=== PATIENT | male | born 1945 | race Caucasian/White ===

== ENCOUNTER 2017-03-26 09:52 | Day surgery (SDC) | payer MEDICARE ==
[2017-03-22 08:43] VITALS: BMI 31.0
[~2017-03-26 09:52] MED LIST: LACTATED RINGERS 1,000 ML IV SCH; LIDOCAINE 1% 20 ML VIAL (10MG/ML) FOR IV START INTRADERMA PRN
[2017-03-26 10:12] VITALS: RESP 16; TEMP 97.2
[2017-03-26] MEDS ORDERED: PROPOFOL 10 MG/ML 20 ML VIAL IV ONE (10:58)
--- NOTE | 2017-03-26 11:28 | P.PCN ---
Date of Procedure: 03/26/17 Preoperative Diagnosis: Postoperative Diagnosis: Procedure(s) Performed: Procedure: Total colonoscopy. Preoperative diagnosis: Screening for neoplasia, patient has history of polyps. Postoperative diagnosis: Diverticulosis with no evidence of acute diverticulitis , strictures, polyps or cancer. Preparation: HalfLytely prep. Sedation: Was provided by anesthesia. Brief clinical history: The patient is a 71-year-old male who is scheduled for this evaluation for screening for neoplasia because of history of polyps. His last exam was around 7 years ago the patient had polyps removed on his first exam prior to that. This would be his first colonoscopy. He has no abdominal complaints, bleeding or anemia. Procedure: With the patient on his left lateral decubitus position and after informed consent and adequate sedation, the perianal area was inspected and it did not show any fissures or fistulas. There were no masses felt on digital rectal examination. The Olympus CFQ 160L video colonoscope was then inserted in the rectum in the usual fashion and advanced to the cecum. There was diffuse diverticulosis with no evidence of acute diverticulitis or strictures. The mucosa appeared healthy. No polyps or tumors were seen. I retroflexed the endoscope in the rectum before the endoscope was withdrawn. The patient tolerated the procedure well. Plan: The patient was reassured. Discussed dietary measures. He will follow up with you as planned and I recommended repeat exam in 5 years. Implants: Indications for Procedure: Operative Findings: Description of Procedure:
[2017-03-26 11:48] VITALS: BP 136/70; PULSE 49
== END 2017-03-26 12:00 | disposition home or self-care (01) ==
LOC: ORWHC2ENDO 09:52
DX: Z12.11 Encounter for screening for malignant neoplasm of colon (principal); K57.30 Diverticulosis of large intestine without perforation or abscess without bleeding; Z86.010 Personal history of colon polyps; K21.9 Gastro-esophageal reflux disease without esophagitis; I10 Essential (primary) hypertension; Z79.899 Other long term (current) drug therapy
CPT/HCPCS: J2704; G0105

== ENCOUNTER → 2019-09-11 | Outpatient (CLI) | payer MEDICARE ==
--- NOTE | 2019-09-11 08:58 | MR ---
EXAMINATION TYPE: MR shoulder RT wo con DATE OF EXAM: 09/11/2019 COMPARISON: X-ray dated 09/02/2019 HISTORY: R shoulder pain TECHNIQUE: Multiplanar, multisequence imaging of the right shoulder is performed without contrast. FINDINGS: There is hypertrophic change involving the AC joint which results in impingement upon the r otator cuff. Increased signal within the AC joint suggest active edematous change within the joint sp monique and ligamentous structures. There is fluid in the subacromial subdeltoid bursa. There is a complete through thickness tear anteri or fibers of the supraspinatus tendon measuring 1.2 cm. There is severe tendinopathy involving the re maining portion of the distal margin of the supraspinatus tendon and its posterior fibers. Subscapularis tendon is intact although there is increased signal at its insertion suggestive of intr asubstance tear or tendinosis. Infraspinatus tendon demonstrates thinning and increased signal at its insertion compatible tendinosi s. Bony labrum grossly intact. There is a small amount of fluid in the joint space. Elevation of the humeral head relative glenoid i s compatible with rotator cuff tear. Cystic changes involving the humeral head likely reactive second joan to post impingement. Biceps tendon is seen within the bicipital groove. Intracapsular portion bic eps tendon and biceps anchor intact. IMPRESSION: 1. There is a 1.2 cm through thickness tear of the distal margin of the supraspinatus tendon. Remaini ng portion of the distal margin supraspinatus tendon demonstrates diffuse tendinopathy. 2. Tendinosis distal subscapularis and infraspinatus tendons with no definite through thickness tear. 3. Impingement with AC joint arthropathy. Edematous signal within the AC joint noted which may be on the basis of ligamentous strain. 4. Glenohumeral joint arthropathy.
== END | disposition home or self-care (01) ==
LOC: RADMRIMAIN 07:02
PROVIDERS: ATTEND Orthopaedic Surgery
DX: M75.111 Incomplete rotator cuff tear or rupture of right shoulder, not specified as traumatic (principal); M12.811 Other specific arthropathies, not elsewhere classified, right shoulder; R60.0 Localized edema

== ENCOUNTER → 2019-12-02 | Outpatient (CLI) | payer MEDICARE ==
[2019-12-02 07:33] LABS: Potassium 4.2 mmol/L (3.5-5.1)
[2019-12-02 07:35] LABS: Basophils % (A) 0 %; Eosinophils # (A) 0.2 k/uL (0-0.7); Eosinophils % (A) 3 %; HCT 50.6 % (39.0-53.0); Lymphocytes # (A) 1.9 k/uL (1.0-4.8); Lymphocytes % (A) 34 %; MCHC 33.6 g/dL (31.0-37.0); MCV 95.3 fL (80.0-100.0); Mean Platelet Volume 7.3; Monocytes # (A) 0.4 k/uL (0-1.0); Monocytes % (A) 7 %; Neutrophils # (A) 2.8 k/uL (1.3-7.7); Neutrophils % (A) 52 %; Platelet Count 221 k/uL (150-450); RBC 5.31 m/uL (4.30-5.90); RDW 12.4 % (11.5-15.5); WBC 5.5 k/uL (3.8-10.6)
== END | disposition home or self-care (01) ==
LOC: LABPAT 06:38
PROVIDERS: ATTEND Orthopaedic Surgery
DX: Z01.810 Encounter for preprocedural cardiovascular examination (principal); Z01.812 Encounter for preprocedural laboratory examination; M75.41 Impingement syndrome of right shoulder
CPT/HCPCS: 36415; 80051; 85025; 93005

== ENCOUNTER 2019-12-10 06:00 | Day surgery (SDC) | payer MEDICARE ==
[2019-12-09 08:13] VITALS: BMI 30.1
--- NOTE | 2019-12-09 21:46 | HP ---
HISTORY AND PHYSICAL DATE OF SURGERY: 12/10/2019 Terence Colvin is a 74-year-old patient seen with progressive right shoulder pain. We discussed treatment options. He elected to proceed with right shoulder arthroscopy. Consent regarding the procedure was obtained. PAST MEDICAL HISTORY: Hypertension. PAST SURGICAL HISTORY: Knee arthroscopy. DAILY MEDICATIONS: Hydrochlorothiazide. ALLERGIES: NONE. SOCIAL HISTORY: Denies tobacco use. PHYSICAL EVALUATION OF THE RIGHT SHOULDER: Flexion 150 degrees, abduction 140 degrees, external rotation 25 degrees with pain and weakness. There is tenderness along the anterolateral acromion and rotator cuff insertion site. Impingement is positive at 90 degrees. Drop-arm sign is positive. His distal neurovascular exam is intact. RADIOGRAPHS: Right shoulder radiographs revealed a type 2 anterior acromion, evidence for acromioclavicular joint osteoarthritis and cystic changes of the greater tuberosity. Right shoulder MRI revealed rotator cuff tendon tear as well as osteoarthritic changes. IMPRESSION: 1. Right shoulder impingement with rotator cuff tear. 2. Right shoulder acromioclavicular joint osteoarthritis. 3. Hypertension. PLAN: Right shoulder arthroscopy with subacromial decompression, arthroscopic rotator cuff repair, arthroscopic Mandi procedure, biceps tenotomy and debridement. MMODL / IJN: [id number] /
[2019-12-10] MEDS ORDERED: DEXAMETHASONE SOD PHOSPHATE 10 MG/ML 1 ML VIAL IV ONE (06:11)
[2019-12-10] MEDS ORDERED: MIDAZOLAM 2 MG/2 ML VIAL IV PRN (06:11)
[2019-12-10] MEDS ORDERED: LIDOCAINE 1% (10MG/ML) FOR IV START INTRADERMA PRN (06:11)
[2019-12-10] MEDS ORDERED: HYDROmorphone 0.5 MG/0.5 ML SYRINGE IVP PRN (06:11)
[2019-12-10] MEDS ORDERED: SCOPOLAMINE 1.5MG/72HR PATCH TRANSDERM ONE (06:11)
[2019-12-10] MEDS ORDERED: LACTATED RINGERS 1,000 ML IV SCH (06:11)
[2019-12-10] MEDS ORDERED: ONDANSETRON 4 MG/2 ML VIAL IVP ONE (06:11)
[2019-12-10] MEDS ORDERED: fentaNYL (PF) 50 MCG/ML 2 ML AMP IV ONE (06:50)
[2019-12-10] MEDS ORDERED: MIDAZOLAM 2 MG/2 ML VIAL IV ONE (06:50)
[2019-12-10] MEDS ORDERED: ROPIVACAINE 5 MG/ML 30 ML VIAL ONE (07:23)
[2019-12-10] MEDS ORDERED: PROPOFOL 10 MG/ML 20 ML VIAL IV ONE (07:23)
[2019-12-10] MEDS ORDERED: SUCCINYLCHOLINE CHLORIDE 100 MG/5 ML SYR IV ONE (07:23)
[2019-12-10] MEDS ORDERED: LIDOCAINE 1% INJ 10MG/ML (20 ML MDV) ONE (07:23)
[2019-12-10] MEDS ORDERED: fentaNYL (PF) 50 MCG/ML 2 ML AMP ONE (07:23)
--- NOTE | 2019-12-10 08:58 | P.ANPRN ---
Procedure Note - Anesthesia - Nerve Block Performed Right Interscalene Single Time Out Performed: Yes (650) Date of Procedure: 12/10/19 Procedure Start Time: 06:51 Procedure Stop Time: 06:59 Location of Patient: PreOp Indication: Acute Post-Operative Pain, Requested by Surgeon Specifically requested for management of pain by DrRon: Wayne Ball Sedation Type: Sedate with meaningful contact maintained Preparation: Sterile Prep Position: Supine Catheter: None Needle Types: Pajunk Needle Gauge: 21 Ultrasound used to visualize needle placement: Yes Ultrasound used to observe medication spread: Yes Injectate: 0.5% Ropivacaine (see comment for volume) (30cc) Blood Aspirated: No Pain Paresthesia on Injection Noted: No Resistance on Injection: Normal Image Stored and Saved: Yes Events: Uneventful and Well Tolerated
[2019-12-10 09:21] VITALS: TEMP 97.8
--- NOTE | 2019-12-10 09:31 | P.OP ---
Date of Procedure: 12/10/19 Preoperative Diagnosis: Right shoulder impingement Postoperative Diagnosis: 1. Right shoulder rotator cuff tear 2. Right shoulder impingement 3. Right shoulder acromioclavicular joint osteoarthritis 4. Right shoulder partial long head biceps tendon tear 5. Right shoulder superficial anterior labral tear 6. Right shoulder grade 3/4 glenohumeral joint osteoarthritis Procedure(s) Performed: 1. Right shoulder arthroscopic rotator cuff repair 2. Right shoulder arthroscopic subacromial decompression 3. Right shoulder arthroscopic Mandi procedure 4. Right shoulder arthroscopic biceps tenotomy 5. Right shoulder arthroscopic debridement labral tear Implants: 2Arthrex 4.75 swivel lock anchors Anesthesia: GETA, regional (Interscalene block) Surgeon: Wayne Ball Plant Anatomy Teacher #1: Quique Cho Estimated Blood Loss (ml): 10 Pathology: none sent Condition: stable Disposition: PACU Indications for Procedure: 74-year-old patient seen with progressive right shoulder pain. After treatment options were discussed, he elected to proceed with arthroscopy. Operative Findings: See description of procedure Description of Procedure: Patient underwent an interscalene block by department of anesthesia. The patient was then taken to the operative suite. The patient underwent a general anesthetic by the department of anesthesia. The patient was placed into a lateral position and secured. There was appropriate padding of the bony prominence. Right shoulder was then prepped and draped in normal sterile orthopedic fashion. We placed the extremity in 10 pounds of longitudinal traction. A posterior incision was now made for a posterior working portal site. The trocar and cannula were inserted into the glenohumeral joint. Arthroscopy was initiated. Spinal needle was now inserted anteriorly, to ascertain the anterior working portal site. An incision was now made in that area, a trocar was inserted followed by a probe. There were grade 3/4 chondromalacia changes of the humeral head with no osteochondral tears present. There were grade 3 chondromalacia changes of the glenoid fossa with no osteochondral tears present. There was an obvious massive rotator cuff tear I could visualize some of glenohumeral side. There was some partial tearing long head biceps tendon. There was some superficial fraying of the anterior labrum. I performed an ar throscopic biceps tenotomy. I debrided that superficial anterior labral tear down to stable labral tissue. The residual labrum was probed and found to be stable. At this point instruments removed from glenohumeral joint. Utilizing the posterior working portal site, the trocar and cannula were inserted into the subacromial space. Arthroscopy initiated. I made an incision 2 fingerbreadths lateral to the acromion. I introduced my trocar followed by my ArthroCare ablator. I now began ablating thick subacromial bursal tissue, which exposed the undersurface of the anterior acromion. There was diminished subacromial space. There was a very prominent anterior acromion. A motorized bur was introduced and a subacromial decompression was performed. I also excised some osteophytes off the inferior aspect of the distal clavicle. The AC joint was visualized and noted to be fairly arthritic. The motorized bur was introduced in the anterior portal site and a Mandi procedure was performed without difficulty, decompressing the AC joint nicely. I turned my attention to the rotator cuff. There was a fairly massive tear involving mainly the supraspinatus tendon. I could not pull the tendon over the footprint anteriorly. I now began meticulously releasing the tendon anteriorly into the midbody area. After significant amount time was spent release the tendon I was able to manage to get the tendons approximated centrally. At this point I abraded the footprint with a motorized bur. I repaired the tendon in the intrasubstance component with 4 [id number] sutures with the assistance of the louisa FELICIANO. This did converge the tendon nicely. I then passed for everted mattress sutures through good bites of rotator cuff tendon. I now push-pull anteriorly for insertion of anchor. The 4 anterior suture limbs were passed through the eyelet of 4.75 Arthrex a lock anchor. The eyelet was now introduced into the pre-punch hole. Aleksandr FELICIANO tension the sutures and deployed the anchor. We had good fixation. The same was done with the posterior for suture limbs compressed the tendon posteriorly very nicely. All residual suture limbs were now clipped. We had good compression of the tendon along the entire footprint. I injected 1 mL Renyte intra-articular. Instruments now removed from the portal sites. All portal sites were approximated with nylon suture. Sterile dressings were applied followed by a shoulder immobilizer. Quique FELICIANO assisted in this complex case. The patient was awakened, transferred to a bed, and taken to recovery in stable condition.
[2019-12-10 09:39] VITALS: RESP 16
[2019-12-10 10:25] VITALS: BP 145/89; PULSE 58
[2019-12-10] MEDS ORDERED: MEPERIDINE 50 MG/ML SYRINGE IVP ONE (10:40)
== END 2019-12-10 11:33 | disposition home or self-care (01) ==
LOC: OR 06:00
PROVIDERS: ATTEND Orthopaedic Surgery
DX: M75.101 Unspecified rotator cuff tear or rupture of right shoulder, not specified as traumatic (principal); M19.011 Primary osteoarthritis, right shoulder; M94.211 Chondromalacia, right shoulder; M75.41 Impingement syndrome of right shoulder; S46.111A Strain of muscle, fascia and tendon of long head of biceps, right arm, initial encounter; S43.431A Superior glenoid labrum lesion of right shoulder, initial encounter; I10 Essential (primary) hypertension; E78.5 Hyperlipidemia, unspecified; K21.9 Gastro-esophageal reflux disease without esophagitis; Z79.899 Other long term (current) drug therapy
CPT/HCPCS: 64415; 76942; 29824; 29826; 29827; C1713 ×2; Q4212; J2250; J1100; J2175; J0690; J2405; J2001; J3010; J2795; J0330; J2704

== ENCOUNTER 2022-04-08 09:13 | Inpatient (IN) | payer MEDICARE ==
[2022-04-08] MEDS ORDERED: ASPIRIN 81 MG PO STA (09:33)
[2022-04-08] MEDS ORDERED: NITROGLYCERIN OINT 1 INCH/GM PACKET TOPICAL STA (09:33)
--- NOTE | 2022-04-08 09:36 | ED ---
General Adult HPI - General Chief complaint: Chest Pain Stated complaint: chest pain x 3days Time Seen by Provider: 04/08/22 09:23 Source: patient, family, RN notes reviewed Mode of arrival: wheelchair Limitations: no limitations - History of Present Illness Initial comments: Patient is a pleasant 76-year-old male presenting to the emergency department with complaints of chest discomfort. Onset of symptoms was around a week ago. Symptoms have been somewhat worse the past 3 days. Symptoms were worse today with attempting to get on the treadmill. Patient states he is only able to do it for a couple minutes. Patient has heaviness in his chest with some radiation towards left arm. Patient also has been belching recently. No dyspnea, vomiting, or diaphoresis. No history of similar symptoms previously. Discomfort is mild at this time rated 1/10. Discomfort earlier was 6/10. No leg pain or leg swelling. - Related Data Home Medications Medication Instructions Recorded Confirmed hydroCHLOROthiazide 25 mg PO DAILY 01/24/15 12/10/19 Ascorbic Acid [Vitamin C] 500 mg PO DAILY@1200 09/22/15 12/10/19 Multivitamin [Men's Multi-Vitamin] 1 each PO DAILY 09/22/15 12/10/19 Atorvastatin [Lipitor] 10 mg PO DAILY 12/09/19 12/10/19 Famotidine [Pepcid] 20 mg PO DAILY 12/09/19 12/10/19 Previous Rx's Medication Instructions Recorded HYDROcodone/APAP 7.5-325MG [[place] 1 each PO Q6HR PRN #28 tab 12/10/19 7.5] Allergies Allergy/AdvReac Type Severity Reaction Status Date / Time No Known Allergies Allergy Verified 04/08/22 09:21 Review of Systems ROS Statement: Those systems with pertinent positive or pertinent negative responses have been documented in the HPI. ROS Other: All systems not noted in ROS Statement are negative. Constitutional: Denies: fever Eyes: Denies: eye pain ENT: Denies: ear pain Respiratory: Denies: cough, dyspnea Cardiovascular: Reports: as per HPI, chest pain Endocrine: Denies: fatigue Gastrointestinal: Denies: abdominal pain Genitourinary: Denies: dysuria Musculoskeletal: Denies: back pain Skin: Denies: rash Neurological: Denies: weakness Past Medical History Past Medical History: GERD/Reflux, Hypertension History of Any Multi-Drug Resistant Organisms: None Reported Past Surgical History: Orthopedic Surgery Additional Past Surgical History / Comment(s): Bilateral knees patella tendon repair Past Anesthesia/Blood Transfusion Reactions: No Reported Reaction Past Psychological History: No Psychological Hx Reported Smoking Status: Never smoker Past Alcohol Use History: Occasional Past Drug Use History: None Reported - Past Family History Father Family Medical History: Cancer Additional Family Medical History / Comment(s): bladder Sister(s) Family Medical History: Cancer Additional Family Medical History / Comment(s): Breast Mother Family Medical History: Cancer Additional Family Medical History / Comment(s): colon General Exam Limitations: no limitations General appearance: alert, in no apparent distress Head exam: Present: normocephalic Eye exam: Present: normal appearance Neck exam: Present: normal inspection Respiratory exam: Present: normal lung sounds bilaterally. Absent: chest wall tenderness Cardiovascular Exam: Present: regular rate, normal rhythm Expanded Peripheral pulses: 2+: Radial (R), Radial (L), Posterior Tibialis (R), Posterior Tibialis (L) GI/Abdominal exam: Present: soft. Absent: tenderness Extremities exam: Present: normal inspection. 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 QRS 105. QT 422. QTC 434. normal axis. Normal QRS. No acute ST change. Medical Decision Making - Medical Decision Making Patient reevaluated and resting comfortably in bed. Patient and family updated on results and plan. I do have concern regarding patient's history and mild elevation of troponin. Patient will be started on heparin. Patient does have mild elevation of d-dimer and computed tomography scan will be ordered. Case was discussed with practitioner nahid Herron [facility], who admits for hospital observation call and she will admit. - Lab Data Result diagrams: 04/08/22 09:35 04/08/22 09:35 Lab Results 04/08/22 04/08/22 04/08/22 Range/Units 09:35 09:35 09:35 WBC 5.5 (3.8-10.6) k/uL RBC 5.14 (4.30-5.90) m/uL Hgb 16.9 (13.0-17.5) gm/dL Hct 49.0 (39.0-53.0) % MCV 95.4 (80.0-100.0) fL MCH 32.8 (25.0-35.0) pg MCHC 34.4 (31.0-37.0) g/dL RDW 12.4 (11.5-15.5) % Plt Count 191 (150-450) k/uL MPV 7.4 Neutrophils % 62 % Lymphocytes % 26 % Monocytes % 8 % Eosinophils % 2 % Basophils % 1 % Neutrophils # 3.4 (1.3-7.7) k/uL Lymphocytes # 1.4 (1.0-4.8) k/uL Monocytes # 0.4 (0-1.0) k/uL Eosinophils # 0.1 (0-0.7) k/uL Basophils # 0.1 (0-0.2) k/uL PT 10.5 (9.0-12.0) sec INR 1.0 (<1.2) APTT 22.8 (22.0-30.0) sec D-Dimer 0.98 H (<0.60) mg/L FEU Sodium 139 (137-145) mmol/L Potassium 4.1 (3.5-5.1) mmol/L Chloride 105 (98-107) mmol/L Carbon Dioxide 25 (22-30) mmol/L Anion Gap 9 mmol/L BUN 24 H (9-20) mg/dL Creatinine 1.08 (0.66-1.25) mg/dL Est GFR (CKD-EPI)AfAm 77 (>60 ml/min/1.73 sqM) Est GFR (CKD-EPI)NonAf 67 (>60 ml/min/1.73 sqM) Glucose 118 H (74-99) mg/dL Calcium 10.1 (8.4-10.2) mg/dL Magnesium 2.1 (1.6-2.3) mg/dL Total Bilirubin 0.9 (0.2-1.3) mg/dL AST 37 (17-59) U/L ALT 26 (4-49) U/L Alkaline Phosphatase 66 (38-126) U/L Troponin I (0.000-0.034) ng/mL Total Protein 7.2 (6.3-8.2) g/dL Albumin 4.3 (3.5-5.0) g/dL Amylase 69 (30-110) U/L Lipase 44 (23-300) U/L 04/08/22 Range/Units 09:35 WBC (3.8-10.6) k/uL RBC (4.30-5.90) m/uL Hgb (13.0-17.5) gm/dL Hct (39.0-53.0) % MCV (80.0-100.0) fL MCH (25.0-35.0) pg MCHC (31.0-37.0) g/dL RDW (11.5-15.5) % Plt Count (150-450) k/uL MPV Neutrophils % % Lymphocytes % % Monocytes % % Eosinophils % % Basophils % % Neutrophils # (1.3-7.7) k/uL Lymphocytes # (1.0-4.8) k/uL Monocytes # (0-1.0) k/uL Eosinophils # (0-0.7) k/uL Basophils # (0-0.2) k/uL PT (9.0-12.0) sec INR (<1.2) APTT (22.0-30.0) sec D-Dimer (<0.60) mg/L FEU Sodium (137-145) mmol/L Potassium (3.5-5.1) mmol/L Chloride (98-107) mmol/L Carbon Dioxide (22-30) mmol/L Anion Gap mmol/L BUN (9-20) mg/dL Creatinine (0.66-1.25) mg/dL Est GFR (CKD-EPI)AfAm (>60 ml/min/1.73 sqM) Est GFR (CKD-EPI)NonAf (>60 ml/min/1.73 sqM) Glucose (74-99) mg/dL Calcium (8.4-10.2) mg/dL Magnesium (1.6-2.3) mg/dL Total Bilirubin (0.2-1.3) mg/dL AST (17-59) U/L ALT (4-49) U/L Alkaline Phosphatase (38-126) U/L Troponin I 0.068 H* (0.000-0.034) ng/mL Total Protein (6.3-8.2) g/dL Albumin (3.5-5.0) g/dL Amylase (30-110) U/L Lipase (23-300) U/L Critical Care Time Critical Care Time: Yes Total Critical Care Time: 32 Disposition Clinical Impression: Unstable angina Disposition: ADMITTED IP TO THIS HOSP Is patient prescribed a controlled substance at d/c from ED?: No Referrals: Selvin Jiménez III, MD [Primary Care Provider] - 1-2 days Time of Disposition: 11:14
--- NOTE | 2022-04-08 09:55 | XR ---
EXAMINATION TYPE: XR chest 2V DATE OF EXAM: 04/08/2022 COMPARISON: Chest x-ray January 24, 2015 HISTORY: Chest pain for one week. TECHNIQUE: Frontal and lateral views of the chest are obtained. FINDINGS: There is no suspicious focal air space opacity, pleural effusion, or pneumothorax seen. T he cardiac silhouette size remains within normal limits. The osseous structures are intact. Overlyi ng EKG leads. IMPRESSION: No acute process. No significant change from prior.
[2022-04-08 10:09] LABS: Basophils # (A) 0.1 k/uL (0-0.2); Basophils % (A) 1 %; Eosinophils # (A) 0.1 k/uL (0-0.7); Eosinophils % (A) 2 %; HGB 16.9 gm/dL (13.0-17.5); Lymphocytes # (A) 1.4 k/uL (1.0-4.8); Lymphocytes % (A) 26 %; MCH 32.8 pg (25.0-35.0); MCHC 34.4 g/dL (31.0-37.0); MCV 95.4 fL (80.0-100.0); Mean Platelet Volume 7.4; Monocytes # (A) 0.4 k/uL (0-1.0); Monocytes % (A) 8 %; Neutrophils # (A) 3.4 k/uL (1.3-7.7); Neutrophils % (A) 62 %; Platelet Count 191 k/uL (150-450); RBC 5.14 m/uL (4.30-5.90); RDW 12.4 % (11.5-15.5); WBC 5.5 k/uL (3.8-10.6)
[2022-04-08 10:34] LABS: Albumin 4.3 g/dL (3.5-5.0); Calcium 10.1 mg/dL (8.4-10.2); Magnesium 2.1 mg/dL (1.6-2.3); Potassium 4.1 mmol/L (3.5-5.1); Total Bilirubin 0.9 mg/dL (0.2-1.3); Total Protein 7.2 g/dL (6.3-8.2)
[2022-04-08 10:36] LABS: Partial Thromboplastin Time 22.8 sec (22.0-30.0); Prothrombin Time 10.5 sec (9.0-12.0)
[2022-04-08] MEDS ORDERED: NALOXONE 0.4 MG/ML 1 ML VIAL IVP PRN (11:12)
[2022-04-08] MEDS ORDERED: HYDROcodone/APAP 5-325MG 1 EACH TAB PO PRN (11:12)
[2022-04-08] MEDS ORDERED: HEPARIN SODIUM 1,000 UN/ML (10ML VL) IV PRN (11:15)
[2022-04-08] MEDS ORDERED: NITROGLYCERIN SL TABS 0.4 MG TAB SUBLINGUAL PRN (11:15)
[2022-04-08] MEDS ORDERED: HEPARIN SODIUM 1,000 UN/ML (10ML VL) IV ONE (11:15)
[2022-04-08] MEDS: HEPARIN SOD,PORK IN 0.45% NACL 25,000 UNIT in 0.45% NACL 1 250ML.BAG IV SCH (11:35)
[2022-04-08] MEDS: ATORVASTATIN 40 MG TAB PO SCH (11:36)
--- NOTE | 2022-04-08 11:48 | CT ---
EXAMINATION TYPE: CT angio chest DATE OF EXAM: 04/08/2022 COMPARISON: Chest x-ray earlier today HISTORY: Lt anterior chest wall pain CT DLP: 559.8 mGycm. Automated Exposure Control for Dose Reduction was Utilized. CONTRAST: CTA scan of the thorax is performed with IV Contrast, patient injected with 62 mL of Isovue 370, pulm onary embolism protocol. MIP Images are created on CT scanner and reviewed. FINDINGS: LUNGS: The lungs are grossly clear, there is no concerning greater than 6 mm parenchymal mass or nodu le identified. There is no pleural effusion or pneumothorax seen. The tracheobronchial tree is pat ent. MEDIASTINUM: There is satisfactory enhancement of the pulmonary artery and its branches, there is no CT evidence for pulmonary embolism. Some enhancement of the thoracic aorta without aneurysm or dissec tion. There are no greater than 1 cm hilar or mediastinal lymph nodes. No cardiomegaly or pericardi al effusion is seen. Coronary artery calcifications are present which is noted marker for underlying coronary artery disease. OTHER: Spine is straightened with multilevel spurring. Bilateral subareolar gynecomastia. Small size hiatal hernia. IMPRESSION: No CT evidence for acute pulmonary embolism. No suspicious acute pulmonary process.
[2022-04-08] MEDS: NITROGLYCERIN OINT 1 INCH/GM PACKET TOPICAL SCH ×2 (12:36→17:31)
[2022-04-08] MEDS: ACETAMINOPHEN TAB 325 MG TAB PO PRN ×2 (15:58→21:55)
--- NOTE | 2022-04-08 17:50 | P.HPIM ---
History of Present Illness H&P Date: 04/08/22 History of Presenting Illness: Patient is a very pleasant 76-year-old male with a past medical history of hypertension, hyperlipidemia, and GERD. He presented to the emergency de partment with a chief complaint of intermittent chest pain waxing and waning over the past 3 days. Patient describes this chest pain as a pressure-like sensation/heaviness radiating into his left shoulder and arm.. Patient reports this pain randomly develops off and on throughout the day. Patient reports this morning the pain was minimal so he thought he would give himself a self- administered stress test by getting onto the treadmill. Patient reports he was only able to walk on the treadmill for 2 or 3 minutes before the heaviness/pain in his chest became significantly worse and accompanied by uncontrolled and repeated eructation and shortness of breath. Patient reports he got off of the treadmill immediately and this is when he realized he needed to go to the emergency department for evaluation. He denied experiencing any other associated symptoms including headache, lightheadedness, dizziness, diaphoresis, palpitations, abdominal pain, nausea, vomiting, or experiencing any numb ness/tingling/weakness/swelling in his extremities. Patient denies being evaluated by a hand cigar making supervisor in the past and denies having any history of cardiac problems. Patient underwent full evaluation in the emergency department. EKG was completed revealing sinus rhythm with frequent PACs. Chest x-ray negative for acute cardiopulmonary process.troponin was elevated at 0.068. CBC and CMP showing no significant abnormalities. D-dimer was elevated at 0.98. CTA chest was then completed negative for pulmonary emboli. Patient was admitted under our services with consultation to cardiology. Review of systems: Pertinent positives and negatives as discussed in HPI, a complete review of systems was performed and all other systems are negative. Physical exam: Vital signs reviewed and stable. General: Nontoxic, no distress and appears stated age. Derm: Skin warm and dry, normal coloration for ethnicity. Head: Atraumatic, normocephalic and symmetric. Eyes: EOMs intact, no lid lag, and anicteric sclera Mouth: no lip lesions, mucus membranes moist Cardiovascular: regular rate and rhythm with normal S1S2, no murmur, positive posterior tibial pulses bilaterally, and cap refill < 2 seconds. Lungs: Respirations even, regular, and unlabored on room air. Lungs CTA bilaterally, no rhonchi, no rales, no wheezing, and no accessory muscle usage. Abdominal: soft, nontender to palpation, no guarding, no appreciable organomegaly Ext: ROM intact. No gross muscle atrophy, no edema, no contractures Neuro: Speech clear, face symmetrical and CN II-XII grossly intact with no noted focal neuro deficits Psych: Alert and oriented to person, place, time, and situation. Appropriate and pleasant affect. Assessment and Plan of Care: Chest pain, rule out acute coronary event Elevated troponin Elevated d-dimer, CTA negative for PE -Cardiology consult, appreciate further recommendations -Telemetry monitoring -Heparin infusion per ACS protocol -Sublingual nitro as needed for chest pain -Trend troponins -Cardiac diet, NPO at midnight -Aspirin, atorvastatin, and metoprolol -Lipid profile with a.m. labs. -Echocardiogram Hypertension Monitor vital signs and continue daily medication regimen with hydrochlorothiazide. Hyperlipidemia Continue daily medication regimen with atorvastatin. Lipid profile with a.m. labs GERD GI prophylaxis with Protonix. The patient is admitted with an anticipated less than 2 midnight stay for evaluation of chest pain CODE STATUS: Full code DVT prophylaxis: Heparin Discussed with: Patient and RN Anticipated discharge date: 1-[address]: Home A total of 46 minutes was spent on the care of this complex patient more than 50% of the time was spent in counseling and care coordination. Past Medical History Past Medical History: GERD/Reflux, Hypertension History of Any Multi-Drug Resistant Organisms: None Reported Past Surgical History: Orthopedic Surgery Additional Past Surgical History / Comment(s): Bilateral knees patella tendon repair Past Anesthesia/Blood Transfusion Reactions: No Reported Reaction Past Psychological History: No Psychological Hx Reported Smoking Status: Never smoker Past Alcohol Use History: Occasional Past Drug Use History: None Reported - Past Family History Father Family Medical History: Cancer Additional Family Medical History / Comment(s): bladder Sister(s) Family Medical History: Cancer Additional Family Medical History / Comment(s): Breast Mother Family Medical History: Cancer Additional Family Medical History / Comment(s): colon Medications and Allergies Home Medications Medication Instructions Recorded Confirmed Type hydroCHLOROthiazide 25 mg PO DAILY 01/24/15 04/08/22 History Atorvastatin [Lipitor] 10 mg PO Q48H 12/09/19 04/08/22 History Famotidine [Pepcid] 20 mg PO DAILY 12/09/19 04/08/22 History Allergies Allergy/AdvReac Type Severity Reaction Status Date / Time No Known Allergies Allergy Verified 04/08/22 12:06 Physical Exam Vitals: Vital Signs Temp Pulse Pulse Resp BP Pulse Ox 04/08/22 10:59 56 L 18 123/75 96 04/08/22 09:27 61 65 18 149/87 95 04/08/22 09:16 97.8 F 60 18 143/89 94 L Intake and Output 04/07/22 04/08/22 04/08/22 22:59 06:59 14:59 Other: Weight 91.626 kg Results CBC & Chem 7: 04/08/22 09:35 04/08/22 09:35 Labs: Abnormal Lab Results - Last 24 Hours (Table) 04/08/22 04/08/22 04/08/22 Range/Units 09:35 09:35 09:35 D-Dimer 0.98 H (<0.60) mg/L FEU BUN 24 H (9-20) mg/dL Glucose 118 H (74-99) mg/dL Troponin I 0.068 H* (0.000-0.034) ng/mL
[2022-04-09] MEDS: NITROGLYCERIN OINT 1 INCH/GM PACKET TOPICAL SCH ×4 (01:41→18:09)
[2022-04-09] MEDS: ACETAMINOPHEN TAB 325 MG TAB PO PRN (05:49)
[2022-04-09 06:31] LABS: Basophils % (A) 1 %; Eosinophils # (A) 0.1 k/uL (0-0.7); Eosinophils % (A) 3 %; HCT 46.9 % (39.0-53.0); HGB 16.4 gm/dL (13.0-17.5); Lymphocytes # (A) 1.7 k/uL (1.0-4.8); Lymphocytes % (A) 31 %; MCH 33.7 pg (25.0-35.0); MCHC 34.9 g/dL (31.0-37.0); MCV 96.6 fL (80.0-100.0); Mean Platelet Volume 7.1; Monocytes # (A) 0.4 k/uL (0-1.0); Monocytes % (A) 7 %; Neutrophils # (A) 3.1 k/uL (1.3-7.7); Neutrophils % (A) 57 %; Platelet Count 189 k/uL (150-450); RBC 4.86 m/uL (4.30-5.90); RDW 12.4 % (11.5-15.5); WBC 5.4 k/uL (3.8-10.6)
[2022-04-09 06:39] LABS: Partial Thromboplastin Time 56.2 sec (22.0-30.0); Prothrombin Time 11.1 sec (9.0-12.0)
[2022-04-09] MEDS: ASPIRIN 81 MG PO SCH (07:16)
[2022-04-09] MEDS: ATORVASTATIN 40 MG TAB PO SCH (07:16)
[2022-04-09] MEDS: hydroCHLOROthiazide 25 MG TAB PO SCH (07:16)
[2022-04-09] MEDS: PANTOPRAZOLE 40 MG TABLET PO SCH (07:16)
[2022-04-09 08:16] LABS: Calcium 9.6 mg/dL (8.4-10.2); Magnesium 2.1 mg/dL (1.6-2.3); Potassium 4.2 mmol/L (3.5-5.1)
--- NOTE | 2022-04-09 09:06 | CA ---
Transthoracic Echo Report Name: Terence Colvin Age: 76 Gender: M : 1945 Exam Date: 04/08/2022 12:37 Exam Location: [place] [facility] Ht (in): 71 Wt (lb): 202 Ordering Physician: Gopal Cid Attending/Referring Phys: Dairy Husbandry Worker Abeba Spivey RDCS Procedure CPT: Indications: Evaluate structure and function of heart Cardiac Hx: Technical Quality: Technically difficult study Contrast 1: Lumason Total Dose (mL): 1 Contrast 2: Total Dose (mL): MEASUREMENTS (Male / Female) Normal Values M-MODE IVS Diastolic Thickness MM 3.3 cm 0.6 - 1.0 / 0.6 - 0.9 cm Aortic Root Diameter MM 3.3 cm LA Systolic Diameter MM 2.5 cm LA Ao Ratio MM 0.8 AV Cusp Separation MM 1.7 cm DOPPLER AV Peak Velocity 141.0 cm/s AV Peak Gradient 8.0 mmHg MV Area PHT 2.2 cm??? MR Peak Velocity 98.2 cm/s MR Peak Gradient 3.9 mmHg Mitral E Point Velocity 52.0 cm/s Mitral A Point Velocity 60.9 cm/s Mitral E to A Ratio 0.9 MV Deceleration Time 351.5 ms TR Peak Velocity 156.0 cm/s TR Peak Gradient 9.7 mmHg Right Ventricular Systolic Press 13.8 mmHg FINDINGS Left Ventricle Severely increased septal wall thickness. Lumason used to visualize heart. Left ventricular ejection fraction is estimated at 50-55 %. Right Ventricle Right ventricle not well visualized. Right Atrium Right atrium not well visualized. Left Atrium Left atrium not well visualized. Mitral Valve Trace mitral regurgitation. Aortic Valve There is no aortic regurgitation. Aortic valve not well visualized. Tricuspid Valve Pulmonary artery systolic pressure is normal. Pulmonic Valve Pulmonic valve not well visualized. Pericardium Normal pericardium without effusion. Aorta Aortic root and proximal ascending aorta not well visualized. CONCLUSIONS Severe LVH Left ventricular EF 50-55% Trace mitral regurgitation No pericardial effusion Previewed by: Dr. Trevor Solomon DO (Electronically Signed) Final Date: 09 April 2022 09:04
[2022-04-09] MEDS ORDERED: VERAPAMIL 2.5 MG/ML 2 ML AMP ONE (13:14)
[2022-04-09] MEDS: HEPARIN SOD,PORK IN 0.45% NACL 25,000 UNIT in 0.45% NACL 1 250ML.BAG IV SCH (13:18)
[2022-04-09] MEDS ORDERED: fentaNYL (PF) 50 MCG/ML 2 ML AMP ONE (13:35)
[2022-04-09] MEDS ORDERED: HEPARIN SODIUM 1,000 UN/ML (10ML VL) ONE (13:35)
[2022-04-09 13:39] LABS: Chol/HDL Ratio 3.37 Ratio; LDL Cholesterol,Calculated 108.7 mg/dL (0.0-131.0); VLDL Calculation 15.14 mg/dL (5.00-40.00)
[2022-04-09] MEDS ORDERED: fentaNYL (PF) 50 MCG/ML 2 ML AMP IV ONE (13:43)
[2022-04-09] MEDS ORDERED: MIDAZOLAM 2 MG/2 ML VIAL IV ONE (13:43)
[2022-04-09] MEDS ORDERED: LIDOCAINE 1% INJ 10MG/ML (5 ML VIAL-PF) SQ ONE ×2 (13:43→13:49)
[2022-04-09] MEDS ORDERED: IV FLUID CONTINUATION 1,000 ML IV ONE (13:44)
[2022-04-09] MEDS ORDERED: VERAPAMIL SYRINGE (5 MG/10 ML) INTRAARTER ONE ×3 (13:50→13:55)
[2022-04-09] MEDS: HEPARIN SODIUM 1,000 UN/ML (10ML VL) IV ONE ×5 (14:01→14:57)
[2022-04-09] MEDS ORDERED: TICAGRELOR 90 MG TAB ONE (14:10)
[2022-04-09] MEDS ORDERED: TICAGRELOR 90 MG TAB PO ONE (14:13)
[2022-04-09] MEDS ORDERED: IOPAMIDOL-370 125ML BTL INJ ONE (14:36)
[2022-04-09] MEDS ORDERED: IOPAMIDOL-370 100ML BTL INJ ONE ×2 (15:08)
--- NOTE | 2022-04-09 15:55 | P.PN ---
Subjective Progress Note Date: 04/09/22 Hospital course: Patient is a very pleasant 76-year-old male with a past medical history of hypertension, hyperlipidemia, and GERD. He presented to the emergency department with a chief complaint of intermittent chest pain waxing and waning over the past 3 days. Patient describes this chest pain as a pressure-like sensation/heaviness radiating into his left shoulder and arm.. Patient reports this pain randomly develops off and on throughout the day. Patient reports this morning the pain was minimal so he thought he would give himself a self- administered stress test by getting onto the treadmill. Patient reports he was only able to walk on the treadmill for 2 or 3 minutes before the heaviness/pain in his chest became significantly worse and accompanied by uncontrolled and repeated eructation and shortness of breath. Patient reports he got off of the treadmill immediately and this is when he realized he needed to go to the emergency department for evaluation. He denied experiencing any other associated symptoms including headache, lightheadedness, dizziness, diaphoresis, palpitations, abdominal pain, nausea, vomiting, or experiencing any numbness/tingling/weakness/swelling in his extremities. Patient denies being evaluated by a dietetic assistant in the past and denies having any history of cardiac problems. Patient underwent full evaluation in the emergency department. EKG was completed revealing sinus rhythm with frequent PACs. Chest x-ray negative for acute cardiopulmonary process.troponin was elevated at 0.068. CBC and CMP showing no significant abnormalities. D-dimer was elevated at 0.98. CTA chest was then completed negative for pulmonary emboli. Patient was admitted under our services with consultation to cardiology. He underwent overnight monitoring. Troponins trended 0.068, 0.085, and 0.084. Lipid profile unremarkable. Echocardiogram was completed revealing a normal EF of 50-55% with severe left ventricular hypertrophy. Physical exam: Patient seen and fully evaluated at bedside this morning. Patient does report his chest pain has improved but he states he did have an episode of tightness in his chest this morning. Patient currently remains on heparin infusion per ACS protocol. He denies having any shortness of breath, nausea, dizziness, lightheadedness, or experiencing any numbness/tingling/weakness in his extremities. Awaiting recommendations by cardiology, patient to remain nothing by mouth pending possible cardiac catheterization. Vital signs reviewed and stable. General: Nontoxic, no distress and appears stated age. Derm: Skin warm and dry, normal coloration for ethnicity. Head: Atraumatic, normocephalic and symmetric. Eyes: EOMs intact, no lid lag, and anicteric sclera Mouth: no lip lesions, mucus membranes moist Cardiovascular: regular rate and rhythm with normal S1S2, no murmur, positive posterior tibial pulses bilaterally, and cap refill < 2 seconds. Lungs: Respirations even, regular, and unlabored on room air. Lungs CTA bilaterally, no rhonchi, no rales, no wheezing, and no accessory muscle usage. Abdominal: soft, nontender to palpation, no guarding, no appreciable organomegaly Ext: ROM intact. No gross muscle atrophy, no edema, no contractures Neuro: Speech clear, face symmetrical and CN II-XII grossly intact with no noted focal neuro deficits Psych: Alert and oriented to person, place, time, and situation. Appropriate and pleasant affect. Assessment and Plan of Care: Unstable Angina Elevated troponins Severe left ventricular hypertrophy with normal EF of 50-55% Elevated d-dimer, CTA negative for PE -EKG showing sinus rhythm with frequent PACs -Troponin elevated at 0.068, and 0.085, and 0.084. -Cardiology consulted, appreciate further recommendations -Telemetry monitoring -Heparin infusion per ACS protocol -Sublingual nitro as needed for chest pain -NPO, possible cardiac cath pending -Aspirin, atorvastatin, and metoprolol -Lipid profile unremarkable. -Echocardiogram revealing a preserved EF of 50-55% with severe left ventricular hypertrophy. Hypertension Monitor vital signs and continue daily medication regimen with hydrochlorothiazide. Hyperlipidemia Continue daily medication regimen with atorvastatin. Lipid profile with a.m. labs GERD GI prophylaxis with Protonix. CODE STATUS: Full code DVT prophylaxis: Heparin Discussed with: Patient and RN Anticipated discharge date: Clinical course to determine Anticipated discharge place: Home A total of 38 minutes was spent on the care of this complex patient more than 50% of the time was spent in counseling and care coordination. Objective - Vital Signs Vital signs: Vital Signs Temp 98.1 F 04/09/22 13:00 Pulse 53 L 04/09/22 13:00 Resp 18 04/09/22 13:00 BP 128/70 04/09/22 13:00 Pulse Ox 98 04/09/22 13:00 FiO2 Intake & Output 04/08/22 04/09/22 04/09/22 18:59 06:59 18:59 Intake Total 539.202 571.603 Balance 539.202 571.603 Weight 91.626 kg 92 kg Intake: IV 400 Intake, IV Titration 59.202 171.603 Amount Heparin Sod,Pork in 0.45% 59.202 171.603 NaCl 25,000 unit In 0.45 % NaCl 1 250ml.bag @ 10. 92 UNITS/KG/HR 10.006 mls /hr IV .[facility]H [facility] Rx#: [id number] Oral 480 Other: Voiding Method Toilet Toilet Toilet # Voids 1 1 # Bowel Movements 1 - Labs CBC & Chem 7: 04/09/22 06:07 04/09/22 06:07 Labs: Abnormal Lab Results - Last 24 Hours (Table) 04/08/22 04/08/22 04/09/22 Range/Units 15:46 15:46 06:07 APTT 55.5 H 56.2 H (22.0-30.0) sec BUN (9-20) mg/dL Glucose (74-99) mg/dL Troponin I 0.084 H* (0.000-0.034) ng/mL 04/09/22 Range/Units 06:07 APTT (22.0-30.0) sec BUN 24 H (9-20) mg/dL Glucose 103 H (74-99) mg/dL Troponin I (0.000-0.034) ng/mL
--- NOTE | 2022-04-09 17:40 | P.CRDCN ---
History of Present Illness History of present illness: HISTORY OF PRESENTING ILLNESS Patient is pleasant 76-year-old male with history of hypertension, hyperlipidemia, family history of CAD who normally has been very healthy. He started developing chest pain proximally 10 days ago which was fairly brief however had recurrence the day before arrival and therefore decided to give himself a stress test by going on the treadmill. Going on the treadmill he had a 6 out of 10 chest pain and therefore came to the emergency department. Chest pain had resolved after exercise. CTA was performed which showed no PE. Troponins noted be elevated 0.06, 0.08, 0.08. Echocardiogram showed severe LVH, left ventricular EF 50-55%. REVIEW OF SYSTEMS At the time of my exam: CONSTITUTIONAL: Denies fever or chills. CARDIOVASCULAR: +chest pain, no shortness of breath, orthopnea, PND or palpitations. RESPIRATORY: Denies cough. GASTROINTESTINAL: Denies abdominal pain, diarrhea, constipation, nausea or vomiting. MUSCULOSKELETAL: Denies myalgias. NEUROLOGIC: Denies numbness, tingling or weakness. ENDOCRINE: Denies fatigue, weight change, polydipsia or polyurina. GENITOURINARY: Denies burning, hematuria or urgency with micturation. HEMATOLOGIC: Denies history of anemia or bleeding. PHYSICAL EXAMINATION Vital signs reviewed. CONSTITUTIONAL: No apparent distress. HEENT: Head is normocephalic. Pupils are equal, round. Sclerae anicteric. Mucous membranes of the mouth are moist. No JVD. No carotid bruit. CHEST EXAMINATION: Lungs are clear to auscultation. No chest wall tenderness is noted on palpation or with deep breathing. HEART EXAMINATION: Regular rate and rhythm. S1, S2 heard. No murmurs, gallops or rub. ABDOMEN: Soft, nontender. Positive bowel sounds. EXTREMITIES: 2+ peripheral pulses, no lower extremity edema and no calf tenderne ss. NEUROLOGIC EXAMINATION: Patient is awake, alert and oriented x3. ASSESSMENT 1. Non-STEMI with typical angina symptoms 2. Hypertension 3. Hyperlipidemia 4. Family history of CAD PLAN Patient's symptoms are classic and patient with minimally elevated troponins. Discussed definitive diagnosis with heart catheterization patient is agreeable. Echo shows preserved EF 50-55%. Continue aspirin, heparin drip, beta sourav. Further recommendations to follow. Past Medical History Past Medical History: GERD/Reflux, Hypertension History of Any Multi-Drug Resistant Organisms: None Reported Past Surgical History: Orthopedic Surgery Additional Past Surgical History / Comment(s): Bilateral knees patella tendon repair Past Anesthesia/Blood Transfusion Reactions: No Reported Reaction Past Psychological History: No Psychological Hx Reported Smoking Status: Never smoker Past Alcohol Use History: Occasional Past Drug Use History: None Reported - Past Family History Father Family Medical History: Cancer Additional Family Medical History / Comment(s): bladder Sister(s) Family Medical History: Cancer Additional Family Medical History / Comment(s): Breast Mother Family Medical History: Cancer Additional Family Medical History / Comment(s): colon Medications and Allergies Home Medications Medication Instructions Recorded Confirmed Type hydroCHLOROthiazide 25 mg PO DAILY 01/24/15 04/08/22 History Atorvastatin [Lipitor] 10 mg PO Q48H 12/09/19 04/08/22 History Famotidine [Pepcid] 20 mg PO DAILY 12/09/19 04/08/22 History Allergies Allergy/AdvReac Type Severity Reaction Status Date / Time No Known Allergies Allergy Verified 04/08/22 12:06 Physical Exam Vitals: Vital Signs Temp Pulse Pulse Resp BP BP Pulse Ox 04/09/22 17:30 71 18 142/77 98 04/09/22 17:00 59 L 18 146/76 97 04/09/22 16:45 58 L 18 147/73 96 04/09/22 16:30 55 L 18 137/75 97 04/09/22 16:15 98.1 F 56 L 18 130/73 96 04/09/22 13:00 98.1 F 53 L 18 128/70 98 04/09/22 08:28 97 04/09/22 08:23 98.1 F 56 L 18 125/74 97 04/09/22 04:00 97.6 F 55 L 16 129/60 96 04/09/22 00:00 48 L 16 105/66 95 04/08/22 19:23 97.6 F 58 L 16 106/62 96 04/08/22 18:09 97.9 F 65 18 107/69 96 Intake and Output 04/09/22 04/09/22 04/09/22 06:59 14:59 22:59 Intake Total 571.603 600 Balance 571.603 600 Intake: IV 400 Intake, IV Titration 171.603 600 Amount Heparin Sod,Pork in 0.45% 171.603 NaCl 25,000 unit In 0.45 % NaCl 1 250ml.bag @ 10. 92 UNITS/KG/HR 10.006 mls /hr IV .Q24H [facility] Rx#: [id number] IV Fluid Continuation 1, 600 000 ml @ 0 mls/hr IV .[facility] Rx#:[id number] Other: Voiding Method Toilet Toilet Toilet # Voids 1 1 # Bowel Movements 1 Weight 92 kg Results 04/09/22 06:07 04/09/22 06:07 Cardiac Enzymes 04/08/22 Range/Units 15:46 Troponin I 0.084 H* (0.000-0.034) ng/mL Coagulation 04/09/22 Range/Units 06:07 PT 11.1 (9.0-12.0) sec APTT 56.2 H (22.0-30.0) sec Lipids 04/09/22 Range/Units 06:07 Triglycerides 75.70 (0.00-149.00) mg/dL Cholesterol 176.00 (0.00-200.00) mg/dL HDL Cholesterol 52.20 (40.00-60.00) mg/dL Cholesterol/HDL Ratio 3.37 Ratio CBC 04/09/22 Range/Units 06:07 WBC 5.4 (3.8-10.6) k/uL RBC 4.86 (4.30-5.90) m/uL Hgb 16.4 (13.0-17.5) gm/dL Hct 46.9 (39.0-53.0) % Plt Count 189 (150-450) k/uL Comprehensive Metabolic Panel 04/09/22 Range/Units 06:07 Sodium 140 (137-145) mmol/L Potassium 4.2 (3.5-5.1) mmol/L Chloride 104 (98-107) mmol/L Carbon Dioxide 29 (22-30) mmol/L BUN 24 H (9-20) mg/dL Creatinine 1.17 (0.66-1.25) mg/dL Glucose 103 H (74-99) mg/dL Calcium 9.6 (8.4-10.2) mg/dL Current Medications Generic Name Dose Route Start Last Admin Trade Name Freq PRN Reason Stop Dose Admin Acetaminophen 650 mg 04/08/22 11:12 04/09/22 05:49 Acetaminophen Tab 325 Mg Tab PO 650 mg Q6HR PRN Administration Mild Pain or Fever > 100.5 Hydrocodone Bitart/Acetaminophen 1 each 04/08/22 11:12 Hydrocodone/Apap 5-325mg 1 Each Tab PO Q4HR PRN Moderate Pain Aspirin 81 mg 04/09/22 09:00 04/09/22 07:16 Aspirin 81 Mg PO 81 mg DAILY CECILIA Administration Atorvastatin Calcium 40 mg 04/08/22 11:15 04/09/22 07:16 Atorvastatin 40 Mg Tab PO 40 mg DAILY CECILIA Administration Heparin Sodium (Porcine) 0 unit 04/08/22 11:15 Heparin Sodium 1,000 Un/Ml (10ml Vl) IV PER PROTOCOL PRN Low PTT Protocol Hydrochlorothiazide 25 mg 04/09/22 09:00 04/09/22 07:16 Hydrochlorothiazide 25 Mg Tab PO 25 mg DAILY CECILIA Administration Heparin Sodium/Sodium Chloride 250 mls @ 10.006 mls/hr 04/08/22 11:15 04/09/22 13:18 25,000 unit/ Sodium Chloride IV Not Given .Q24H [facility] Protocol 10.92 UNITS/KG/HR Naloxone HCl 0.2 mg 04/08/22 11:12 Naloxone 0.4 Mg/Ml 1 Ml Vial IVP Q2M PRN Opioid Reversal Nitroglycerin 0.4 mg 04/08/22 11:15 Nitroglycerin Sl Tabs 0.4 Mg Tab SUBLINGUAL Q5M PRN Chest Pain Nitroglycerin 1 inch 04/08/22 12:00 04/09/22 13:18 Nitroglycerin Oint 1 Inch/Gm Packet TOPICAL Not Given Q6HR [facility] Pantoprazole Sodium 40 mg 04/09/22 07:30 04/09/22 07:16 Pantoprazole 40 Mg Tablet PO 40 mg [id number] [facility] Administration Intake and Output 04/09/22 04/09/22 04/09/22 06:59 14:59 22:59 Intake Total 571.603 600 Balance 571.603 600 Intake: IV 400 Intake, IV Titration 171.603 600 Amount Heparin Sod,Pork in 0.45% 171.603 NaCl 25,000 unit In 0.45 % NaCl 1 250ml.bag @ 10. 92 UNITS/KG/HR 10.006 mls /hr IV .Q24H [facility] Rx#: [id number] IV Fluid Continuation 1, 600 000 ml @ 0 mls/hr IV .[facility] Rx#:[id number] Other: Voiding Method Toilet Toilet Toilet # Voids 1 1 # Bowel Movements 1 Weight 92 kg Patient Weight 04/10/22 06:59 Weight 92 kg 04/09/22 06:07 04/09/22 06:07
[2022-04-09] MEDS ORDERED: MAG HYDROX/AL HYDROX/SIMETH 30 ML CUP PO PRN (23:46)
[2022-04-09] MEDS ORDERED: ATROPINE SULFATE 0.1 MG/ML 10ML SYRINGE IV PRN (23:46)
[2022-04-09] MEDS ORDERED: RX INFO: IV CONTRAST WAS GIVEN 1 EACH MISC MISCELLANE PRN (23:46)
[2022-04-09] MEDS ORDERED: ZOLPIDEM 5 MG TAB PO PRN (23:46)
[2022-04-09] MEDS ORDERED: NITROGLYCERIN SL TABS 0.4 MG TAB SUBLINGUAL PRN (23:46)
--- NOTE | 2022-04-09 23:46 | P.PRCINT ---
Percutaneous Coronary Int. - Percutaneous Coronary Intervention Percutaneous Coronary Intervention: PROCEDURES PERFORMED: Left heart catheterization, bilateral coronary angiography, PCI proximal to mid LAD with overlapping 4.0 x 8 mm, 2.5 x 33 mm and 3.5 x 12 mm Xience JAVAD post dilated with a 4.0 NC balloon, IVUS LAD INDICATION: NSTEMI CONSENT:I have discussed the risks, benefits and alternative therapies for the above-mentioned procedure and for both sedation/analgesia as well as necessary blood product administration, if indicated, as they pertain to this patient. The patient has indicated understanding and acceptance of the risks and procedures discussed. PROCEDURE: After the risks, benefits and alternatives of the above mentioned procedure explained in detail with the patient, informed consent was obtained. Patient was taken to the catheterization lab and prepped and draped in usual fashion. 1% lidocaine was used to anesthetize the right radial artery. A 6- Iraqi sheath was placed in the right radial artery using modified Seldinger technique. Left coronary angiography was performed with a 5-Iraqi JL 3.5 catheter. Difficult to engage in the RCA however collaterals noted to come all the way back to the ostium. Using a 6Fr AL 0.75 guide, able to see the ostium of the RCA subselectively with only conus filling. A 5-Iraqi FR5 catheter was inserted into the left ventricle and pressure measurements were obtained. The decision was made to perform PCI of the LAD. A 6-Iraqi CLS 3.5 guide was used to engage the left main. A 0.014 whisper wire was advanced into the distal LAD and a second 0.014 whisper wire was advanced into the diagonal 1. Balloon angioplasty was performed warmed of the LAD with a 2.25 x 12 mm balloon. Next a 3.0 x 12 mm noncompliant balloon was used to predilate the LAD. Balloon angioplasty was performed of the diagonal one sidebranch given some disease of the ostium at the bifurcation. Next a 3.5 x 33 mm Xience JAVAD was placed from the mid LAD. There was more distal disease and therefore this was covered with a 3.5 x 12 mm stent. Patient started having chest pain after inflation. The stent was postdilated with a 4.0 noncompliant balloon. IVUS was performed of the LAD which showed excellent sizing however diffuse calcification and no dissection. There was more proximal LAD disease right at the edge of the stent and therefore an additional 4.0 x 8 mm Xience JAVAD was placed. Repeat IVUS showed no dissection with good stent apposition. Patient's chest pain had improved. Final angiograms were performed. The right radial sheath was removed and a TR band was placed with hemostasis achieved. The patient tolerated the procedure well. Patient was transported back to the post catheterization holding area in stable condition. Conscious Sedation: Patient was monitored under the direct supervision of vision of myself for conscious sedation using Versed and fentanyl for a total duration of 113 minutes HEMODYNAMICS: Ao: 135/82 LV: 133/4, LVEDP 19 SELECTIVE CORONARY ARTERIOGRAPHY: LEFT MAIN: The left main is a large caliber vessel which bifurcates into the LAD and circumflex. There is no significant stenosis. LEFT ANTERIOR DESCENDING CORONARY ARTERY: LAD is a large caliber vessel which wraps around to the apex. There is diffuse proximal to mid LAD heavily calcified stenosis. There is a more focal 95% LAD stenosis. Diagonal 1 has an ostial 40-50% stenosis. There are robust [id number] collaterals although it back to the ostium of the RCA. LEFT CIRCUMFLEX CORONARY ARTERY: Left circumflex is a moderate to large caliber vessel with mild back small 30% stenosis and otherwise normal. RIGHT CORONARY ARTERY: The right coronary artery is a moderate caliber vessel which gives off a PDA and PLV branch and is the dominant vessel. There is 100% RCA stenosis at the ostium. FINAL IMPRESSION: 1. CAD as described above including 100% RCA, diffuse proximal to mid LAD stenosis including culprit 95% mid LAD stenosis, 30% circumflex stenosis 2. S/p successful PCI proximal to mid LAD with overlapping 4.0 x 8 mm, 2.5 x 33 mm and 3.5 x 12 mm Xience JAVAD post dilated with a 4.0 NC balloon, 3. Mildly elevated left sided filling pressures PLAN: 1. Aggressive risk factor modification per most recent ACC/AHA guidelines. 2. Continue dual antiplatelets with aspirin and Brillinta for 12 months. 3. Recommend medical therapy for RCA unless patient has recurrent angina.
[2022-04-10] MEDS: TICAGRELOR 90 MG TAB PO SCH ×3 (06:11→21:00)
[2022-04-10] MEDS: PANTOPRAZOLE 40 MG TABLET PO SCH (07:01)
[2022-04-10 07:41] LABS: Mean Platelet Volume 7.3; Platelet Count 176 k/uL (150-450)
[2022-04-10] MEDS: ASPIRIN 81 MG PO SCH (08:58)
[2022-04-10] MEDS: METOPROLOL TARTRATE 25 MG TAB PO SCH ×2 (08:58→20:59)
[2022-04-10] MEDS: ATORVASTATIN 40 MG TAB PO SCH (08:58)
[2022-04-10] MEDS: hydroCHLOROthiazide 25 MG TAB PO SCH (08:58)
[2022-04-10] MEDS: ACETAMINOPHEN TAB 325 MG TAB PO PRN (12:53)
[2022-04-10] MEDS: HEPARIN SOD,PORK IN 0.45% NACL 25,000 UNIT in 0.45% NACL 1 250ML.BAG IV SCH (13:19)
--- NOTE | 2022-04-10 15:36 | P.PN ---
Subjective Progress Note Date: 04/10/22 Hospital course: Patient is a very pleasant 76-year-old male with a past medical history of hypertension, hyperlipidemia, and GERD. He presented to the emergency department with a chief complaint of intermittent chest pain waxing and waning over the past 3 days. Patient describes this chest pain as a pressure-like sensation/heaviness radiating into his left shoulder and arm.. Patient reports this pain randomly develops off and on throughout the day. Patient reports this morning the pain was minimal so he thought he would give himself a self- administered stress test by getting onto the treadmill. Patient reports he was only able to walk on the treadmill for 2 or 3 minutes before the heaviness/pain in his chest became significantly worse and accompanied by uncontrolled and repeated eructation and shortness of breath. Patient reports he got off of the treadmill immediately and this is when he realized he needed to go to the emergency department for evaluation. He denied experiencing any other associated symptoms including headache, lightheadedness, dizziness, diaphoresis, palpitations, abdominal pain, nausea, vomiting, or experiencing any numbness/tingling/weakness/swelling in his extremities. Patient denies being evaluated by a cat swamper in the past and denies having any history of cardiac problems. Patient underwent full evaluation in the emergency department. EKG was completed revealing sinus rhythm with frequent PACs. Chest x-ray negative for acute cardiopulmonary process.troponin was elevated at 0.068. CBC and CMP showing no significant abnormalities. D-dimer was elevated at 0.98. CTA chest was then completed negative for pulmonary emboli. Patient was admitted under our services with consultation to cardiology. He underwent overnight monitoring. Troponins trended 0.068, 0.085, and 0.084. Lipid profile unremarkable. Echocardiogram was completed revealing a normal EF of 50-55% with severe left ventricular hypertrophy. Patient underwent Cardiac cath on 04/09/22 revealing 100% occlusion of RCA with diffuse proximal to mid LAD stenosis including culprit 95% mid LAD stenosis, and 30% circumflex stenosis. Cardiology successfully performed PCI and stent placement to proximal, mid, and distal LAD. Patient to continue dual antiplatelet therapy with aspirin and Brillinta. Cardiology recommended medical therapy for RCA occlusion unless patient has recurrent angina. Physical exam: Patient seen and fully evaluated at bedside. Patient reports "I actually feel great today." Patient has been ambulating up and down halls and appears to be doing well. Patient does have moderate bruising to right wrist from cardiac cath access site, no active bleeding or drainage noted and pressure dressing in place. Patient denied having any numbness/tingling/weakness and right hand. Patient is on dual antiplatelet therapy with aspirin and Brillinta. He denies having any headache, lightheadedness, dizziness, chest pain, palpitations, shortness of breath, dyspnea with exertion, or experiencing any numbness/tingling/weakness in any of his extremities. Vital signs reviewed and stable. General: Nontoxic, no distress and appears stated age. Derm: Skin warm and dry, normal coloration for ethnicity. moderate bruising to right wrist from cardiac cath access site, no active bleeding or drainage noted and pressure dressing in place. Head: Atraumatic, normocephalic and symmetric. Eyes: EOMs intact, no lid lag, and anicteric sclera Mouth: no lip lesions, mucus membranes moist Cardiovascular: regular rate and rhythm with normal S1S2, no murmur, positive posterior tibial pulses bilaterally, and cap refill < 2 seconds. Lungs: Respirations even, regular, and unlabored on room air. Lungs CTA bilaterally, no rhonchi, no rales, no wheezing, and no accessory muscle usage. Abdominal: soft, nontender to palpation, no guarding, no appreciable organomegaly Ext: ROM intact. No gross muscle atrophy, no edema, no contractures Neuro: Speech clear, face symmetrical and CN II-XII grossly intact with no noted focal neuro deficits Psych: Alert and oriented to person, place, time, and situation. Appropriate and pleasant affect. Assessment and Plan of Care: Multivessel CAD status post cardiac cath on 04/09/22 resulting in successful stenting 3 of proximal, mid, and distal LAD. Unstable Angina Elevated troponins Severe left ventricular hypertrophy with normal EF of 50-55% Elevated d-dimer, CTA negative for PE -Continue dual antiplatelet therapy with aspirin and Brillinta. -Cardiology recommended medical therapy for RCA occlusion unless patient has recurrent angina. -Telemetry monitoring -Heparin infusion per ACS protocol -Sublingual nitro as needed for chest pain -Cardiac diet -Lipid profile unremarkable. -Echocardiogram revealing a preserved EF of 50-55% with severe left ventricular hypertrophy. Hypertension Monitor vital signs and continue daily medication regimen with hydrochlorothiazide. Hyperlipidemia Continue daily medication regimen with atorvastatin. Lipid profile with a.m. labs GERD GI prophylaxis with Protonix. CODE STATUS: Full code DVT prophylaxis: Heparin Discussed with: Patient and RN Anticipated discharge date: Tomorrow morning Anticipated discharge place: Home A total of 37 minutes was spent on the care of this complex patient more than 50% of the time was spent in counseling and care coordination. Objective - Vital Signs Vital signs: Vital Signs Temp 97.3 F L 04/10/22 04:00 Pulse 57 L 04/10/22 04:00 Resp 16 04/10/22 04:00 BP 134/70 04/10/22 04:00 Pulse Ox 98 04/10/22 04:00 FiO2 Intake & Output 04/09/22 04/10/22 04/10/22 18:59 06:59 18:59 Intake Total 1411.603 358 Balance 1411.603 358 Weight 92 kg 91.3 kg Intake: IV 400 Intake, IV Titration 771.603 Amount Heparin Sod,Pork in 0.45% 171.603 NaCl 25,000 unit In 0.45 % NaCl 1 250ml.bag @ 10. 92 UNITS/KG/HR 10.006 mls /hr IV .Q24H CECILIA Rx#: [id number] IV Fluid Continuation 1, 600 000 ml @ 0 mls/hr IV .STK -MED ONE Rx#:[id number] Oral 240 358 Other: Voiding Method Toilet Toilet # Voids 1 3 # Bowel Movements 1 1 - Labs CBC & Chem 7: 04/10/22 07:22 04/10/22 07:22
[2022-04-10 16:12] VITALS: BMI 28.8
[2022-04-10] MEDS: HEPARIN SODIUM,PORCINE/PF 5,000 UNIT/0.5 ML SYRINGE SQ SCH ×2 (17:06→21:45)
--- NOTE | 2022-04-10 19:19 | PN ---
PROGRESS NOTE Mr. Colvin underwent PCI yesterday afternoon performed by Dr. Solomon. He is resting comfortably at the time of my evaluation. His right radial site has some bruising. It is not even quite 24 hours. He has also known RCA occlusion and he underwent intervention of the LAD yesterday and his circumflex has no significant disease. I am recommending that he should stay in the hospital until tomorrow. We will increase activity and continue current medical regimen, which includes dual antiplatelet therapy, and also we will obtain an echocardiogram. His vitals are stable. No JVD. S1-S2 heard normally. No significant murmurs. Lungs are clear. Abdomen and lower extremity exam is unremarkable. Right radial site is clean and dry with a moderate area of ecchymosis. We will continue current therapy, increase activity. Probable discharge tomorrow. MMODL / IJN: [id number] /
[2022-04-11] MEDS: PANTOPRAZOLE 40 MG TABLET PO SCH (06:28)
[2022-04-11 08:04] LABS: Mean Platelet Volume 7.3; Platelet Count 203 k/uL (150-450)
[2022-04-11] MEDS: HEPARIN SODIUM,PORCINE/PF 5,000 UNIT/0.5 ML SYRINGE SQ SCH (09:18)
[2022-04-11] MEDS: METOPROLOL TARTRATE 25 MG TAB PO SCH (09:40)
[2022-04-11] MEDS: hydroCHLOROthiazide 25 MG TAB PO SCH (09:40)
[2022-04-11] MEDS: ASPIRIN 81 MG PO SCH (09:40)
[2022-04-11] MEDS: TICAGRELOR 90 MG TAB PO SCH (09:40)
[2022-04-11] MEDS: ATORVASTATIN 40 MG TAB PO SCH (09:40)
[2022-04-11 11:12] VITALS: RESP 12
[2022-04-11 11:53] VITALS: BP 99/63; PULSE 90; TEMP 97.9
--- NOTE | 2022-04-11 13:46 | PN ---
PROGRESS NOTE This patient underwent stenting of his LAD performed by Dr. Solomon on April 09. His right radial site has some ecchymoses, but the pulse is good. He is resting comfortably. His echocardiogram revealed fair systolic function, ejection fraction of 50-55 percent. He is resting comfortably without symptoms, ambulating the hallways. Vital signs stable. Physical exam did not reveal any significant findings. No JVD. S1- S2 heard normally. Short systolic murmur. Lungs are clear. Abdomen looks exam unchanged. Plan is to continue current medication including dual antiplatelet therapy for 1 year and he can be discharged today. MMODL / IJN: [id number] /
--- NOTE | 2022-04-11 16:45 | P.DS ---
Providers Date of admission: 04/10/22 08:31 Expected date of discharge: 04/11/22 Attending physician: Soy Reid Consults: 04/08/22 11:12 Consult Physician Routine Consulting Provider: Reddy Steward Consult Reason/Comments: Chest Pain Do you want consulting provider notified?: Yes 04/09/22 23:47 Consult Physician Routine Consulting Provider: Reddy Steward Consult Reason/Comments: Post Interventional Patient Do you want consulting provider notified?: Already Contacted Primary care physician: Selvin Brambila Tino [place] Hospital Course: Hospital course: Patient is a very pleasant 76-year-old male with a past medical history of hypertension, hyperlipidemia, and GERD. He presented to the emergency department with a chief complaint of intermittent chest pain waxing and waning over the past 3 days. Patient describes this chest pain as a pressure-like sensation/heaviness radiating into his left shoulder and arm.. Patient reports this pain randomly develops off and on throughout the day. Patient reports this morning the pain was minimal so he thought he would give himself a self- administered stress test by getting onto the treadmill. Patient reports he was only able to walk on the treadmill for 2 or 3 minutes before the heaviness/pain in his chest became significantly worse and accompanied by uncontrolled and repeated eructation and shortness of breath. Patient reports he got off of the treadmill immediately and this is when he realized he needed to go to the emergency department for evaluation. He denied experiencing any other associated symptoms including headache, lightheadedness, dizziness, diaphoresis, palpitations, abdominal pain, nausea, vomiting, or experiencing any numbness/tingling/weakness/swelling in his extremities. Patient denies being evaluated by a special agent in the past and denies having any history of cardiac problems. Patient underwent full evaluation in the emergency department. EKG was completed revealing sinus rhythm with frequent PACs. Chest x-ray negative for acute cardiopulmonary process.troponin was elevated at 0.068. CBC and CMP showing no significant abnormalities. D-dimer was elevated at 0.98. CTA chest was then completed negative for pulmonary emboli. Patient was admitted under our services with consultation to cardiology. He underwent overnight monitoring. Troponins trended 0.068, 0.085, and 0.084. Lipid profile unremarkable. Echocardiogram was completed revealing a normal EF of 50-55% with severe left ventricular hypertrophy. Patient underwent Cardiac cath on 04/09/22 revealing 100% occlusion of RCA with diffuse proximal to mid LAD stenosis including culprit 95% mid LAD stenosis, and 30% circumflex stenosis. Cardiology successfully performed PCI and stent placement to proximal, mid, and distal LAD. Patient to continue dual antiplatelet therapy with aspirin and Brillinta. Cardiology recommended medical therapy for RCA occlusion unless patient has recurrent angina. April 11: Patient's care was assumed by me today following transfer from [facility] physicians Patient up and about. No chest pain or shortness of breath. Seen by cardiology. Cleared for discharge. Discussion and discharge planning more than 35 minutes Physical exam: 97.9, 90, 20, 99/63, 99% room air Gen. appearance: Sitting up, awake, comfortable Cardiovascular: First seconds are normal, no edema Lungs: Clear Psych: AO 3 with affect normal INVESTIGATIONS, reviewed in the clinical context: White count 5.4 hemoglobin 16.4 platelets 29 potassium 4.2 creatinine 1.10 LDL 108 2-D echocardiogram: Severely increased septal wall thickness. EF 55 and 55%. Chest CTA: Negative for PE Assessment and Plan of Care: -Multivessel CAD status post cardiac cath on 04/09/22 resulting in successful stenting 3 of proximal, mid, and distal LAD. Aspirin, Brillinta, Lipitor, Lopressor -Non-ST elevation myocardial infarction (-Cardiology recommended medical therapy for RCA occlusion unless patient has recurrent angina.) -Hypertension Lopressor 25 mg twice a day -Hyperlipidemia Lipitor 40 mg daily -GERD Pepcid Disposition: Home Plan - Discharge Summary Discharge Rx Participant: Yes New Discharge Prescriptions: New Aspirin 81 mg PO DAILY #30 tab Atorvastatin [Lipitor] 40 mg PO DAILY #60 tab Ticagrelor [Brilinta] 90 mg PO BID #60 tab Metoprolol Tartrate [Lopressor] 25 mg PO BID #60 tab Nitroglycerin Sl Tabs [Nitrostat] 0.4 mg SUBLINGUAL Q5M PRN #30 tab PRN Reason: Chest Pain Continue Famotidine [Pepcid] 20 mg PO DAILY Discontinued hydroCHLOROthiazide 25 mg PO DAILY Atorvastatin [Lipitor] 10 mg PO Q48H Discharge Medication List Famotidine [Pepcid] 20 mg PO DAILY 12/09/19 [History] Aspirin 81 mg PO DAILY #30 tab 04/11/22 [Rx] Atorvastatin [Lipitor] 40 mg PO DAILY #60 tab 04/11/22 [Rx] Metoprolol Tartrate [Lopressor] 25 mg PO BID #60 tab 04/11/22 [Rx] Nitroglycerin Sl Tabs [Nitrostat] 0.4 mg SUBLINGUAL Q5M PRN #30 tab 04/11/22 [Rx] Ticagrelor [Brilinta] 90 mg PO BID #60 tab 04/11/22 [Rx] Follow up Appointment(s)/Referral(s): Trevor Solomon DO [STAFF PHYSICIAN] - 04/21/22 3:45 pm Selvin Jiménez III, MD [Primary Care Provider] - 1-2 days (office will call with appointment) Patient Instructions/Handouts: *Surgery [facility] - After Heart Catheterization - Sales Financial Analyst Instructions, Low-Sodium Diet (DC), Cardiac Rehabilitation (DC) Activity/Diet/Wound Care/Special Instructions: limited activity until follow up with Dr Solomon Discharge Disposition: HOME SELF-CARE
== END 2022-04-11 14:56 | disposition home or self-care (01) | DRG 247 ==
LOC: EC 09:13 → 3SCARD 11:16 → OBSVTOIN 04-10 08:31
PROVIDERS: ADMIT Hospitalist; ATTEND Hospitalist
PROC: B2111ZZ Fluoroscopy of Multiple Coronary Arteries using Low Osmolar Contrast (ICD-10-PCS; principal; 2022-04-09 12:00)
PROC: 4A023N7 Measurement of Cardiac Sampling and Pressure, Left Heart, Percutaneous Approach (ICD-10-PCS; principal; 2022-04-09 12:00)
PROC: 027036Z Dilation of Coronary Artery, One Artery with Three Drug-eluting Intraluminal Devices, Percutaneous Approach (ICD-10-PCS; principal; 2022-04-09 12:00)
DX: I21.4 Non-ST elevation (NSTEMI) myocardial infarction (principal); E78.5 Hyperlipidemia, unspecified; I11.9 Hypertensive heart disease without heart failure; I25.110 Atherosclerotic heart disease of native coronary artery with unstable angina pectoris; R01.1 Cardiac murmur, unspecified; Z79.899 Other long term (current) drug therapy; Z82.49 Family history of ischemic heart disease and other diseases of the circulatory system; K21.9 Gastro-esophageal reflux disease without esophagitis
CPT/HCPCS: 36415; 71046; 71275; 80048; 80053; 80061; 82150; 82565; 83690; 83735; 84484; 85025; 85049; 85379; 85610; 85730; 92978; 93005; 93306; 93458; 96374; 99291

== ENCOUNTER 2024-04-18 21:11 | Observation (INO) | payer MEDICARE ==
[2024-04-18 21:38] LABS: Basophils % (A) 0 %; Eosinophils # (A) 0.2 k/uL (0-0.7); Eosinophils % (A) 4 %; HCT 44.9 % (39.0-53.0); Lymphocytes # (A) 1.5 k/uL (1.0-4.8); Lymphocytes % (A) 29 %; MCH 32.9 pg (25.0-35.0); MCHC 33.4 g/dL (31.0-37.0); MCV 98.5 fL (80.0-100.0); Mean Platelet Volume 7.3; Monocytes # (A) 0.4 k/uL (0-1.0); Monocytes % (A) 8 %; Neutrophils % (A) 56 %; Platelet Count 188 k/uL (150-450); RBC 4.56 m/uL (4.30-5.90); RDW 12.4 % (11.5-15.5); WBC 5.3 k/uL (3.8-10.6)
[2024-04-18 21:47] LABS: Partial Thromboplastin Time 23.9 sec (22.0-30.0); Prothrombin Time 10.8 sec (10.0-12.5)
--- NOTE | 2024-04-18 21:47 | XR ---
EXAMINATION TYPE: XR chest 2V DATE OF EXAM: 04/18/2024 9:36 PM CLINICAL INDICATION:Male, 78 years old with history of Chest Pain; [facility] COMPARISON: Chest radiographs from 04/08/2022 TECHNIQUE: XR chest 2V Frontal view of the chest. FINDINGS: Lungs/Pleura: There is no evidence of pleural effusion, focal consolidation, or pneumothorax. Pulmonary vascularity: Unremarkable. Heart/mediastinum: Cardiomediastinal silhouette is unremarkable. Musculoskeletal: No acute osseous pathology. IMPRESSION: No acute cardiopulmonary disease/process.
[2024-04-18 21:50] LABS: ALT 34 U/L (4-49); AST 39 U/L (17-59); African American GFR (CKD) 74 (>60 ml/min/1.73 sqM); Albumin 4.2 g/dL (3.5-5.0); Alkaline Phosphatase 64 U/L (38-126); Anion Gap 7 mmol/L; Blood Urea Nitrogen 33 mg/dL (9-20); Calcium 9.7 mg/dL (8.4-10.2); Carbon Dioxide 27 mmol/L (22-30); Chloride 106 mmol/L (98-107); Glucose 122 mg/dL (74-99); Magnesium 2.4 mg/dL (1.6-2.3); Non-African American GFR(CKD) 64 (>60 ml/min/1.73 sqM); Potassium 4.4 mmol/L (3.5-5.1); Sodium 140 mmol/L (137-145); Total Bilirubin 0.9 mg/dL (0.2-1.3); Total Protein 6.5 g/dL (6.3-8.2)
[2024-04-18] MEDS: MORPHINE SULFATE 2 MG/ML SYRINGE IVP ONE (23:47)
[2024-04-18] MEDS: PANTOPRAZOLE 40 MG/10 ML VIAL IVP STA (23:52)
[2024-04-18] MEDS: FAMOTIDINE 20 MG/2 ML VIAL IV STA (23:55)
--- NOTE | 2024-04-19 00:42 | ED ---
Chest Pain HPI - General Chief Complaint: Chest Pain Stated Complaint: Chest pain, Back pain Time Seen by Provider: 04/18/24 22:00 Source: patient, RN notes reviewed Mode of arrival: ambulatory Limitations: no limitations - History of Present Illness Initial Comments: 78-year-old male with history of MD presenting with chest pain x 1 day. States the pain is in the lower chest and radiates into the throat, to the back, and the right arm. He is also complaining of some epigastric pain. Denies nausea, vomiting, fevers, chills, shortness of breath. He takes daily baby aspirin. Denies history of GERD. - Related Data Home Medications Medication Instructions Recorded Confirmed Famotidine [Pepcid] 20 mg PO DAILY 12/09/19 04/08/22 Previous Rx's Medication Instructions Recorded Aspirin 81 mg PO DAILY #30 tab 04/11/22 Atorvastatin [Lipitor] 40 mg PO DAILY #60 tab 04/11/22 Metoprolol Tartrate [Lopressor] 25 mg PO BID #60 tab 04/11/22 Nitroglycerin Sl Tabs [Nitrostat] 0.4 mg SUBLINGUAL Q5M PRN #30 tab 04/11/22 Ticagrelor [Brilinta] 90 mg PO BID #60 tab 04/11/22 Allergies Allergy/AdvReac Type Severity Reaction Status Date / Time No Known Allergies Allergy Verified 04/18/24 21:16 Review of Systems ROS Statement: Those systems with pertinent positive or pertinent negative responses have been documented in the HPI. ROS Other: All systems not noted in ROS Statement are negative. EKG Findings - EKG Results: EKG: interpreted by KALEY (EKG reveals sinus bradycardia with no ST changes. Ventricular rate 49 bpm, [place] interval 194, QRS duration 103, QT/QTc 438/409) Past Medical History Past Medical History: GERD/Reflux, Hypertension, Myocardial Infarction (MD) History of Any Multi-Drug Resistant Organisms: None Reported Past Surgical History: Heart Catheterization With Stent, Orthopedic Surgery Additional Past Surgical History / Comment(s): Bilateral knees patella tendon repair Past Anesthesia/Blood Transfusion Reactions: No Reported Reaction Past Psychological History: No Psychological Hx Reported Smoking Status: Never smoker Past Alcohol Use History: Occasional Past Drug Use History: None Reported - Past Family History Father Family Medical History: Cancer Additional Family Medical History / Comment(s): bladder Sister(s) Family Medical History: Cancer Additional Family Medical History / Comment(s): Breast Mother Family Medical History: Cancer Additional Family Medical History / Comment(s): colon General Exam Limitations: no limitations General appearance: alert, in no apparent distress Head exam: Present: atraumatic, normocephalic, normal inspection Neck exam: Present: normal inspection. Absent: tenderness, meningismus, lymphadenopathy Respiratory exam: Present: normal lung sounds bilaterally. Absent: respiratory distress, wheezes, rales, rhonchi, stridor Cardiovascular Exam: Present: regular rate, normal rhythm, normal heart sounds. Absent: systolic murmur, diastolic murmur, rubs, gallop, clicks GI/Abdominal exam: Present: soft, normal bowel sounds. Absent: distended, tenderness, guarding, rebound, rigid Extremities exam: Present: normal inspection Neurological exam: Present: alert, oriented X3 Psychiatric exam: Present: normal affect, normal mood Skin exam: Present: warm, dry, intact, normal color. Absent: rash Course Vital Signs 04/18/24 04/18/24 04/19/24 21:14 23:45 00:30 Temperature 97.9 F Pulse Rate 51 L 54 L 51 L Respiratory 18 15 16 Rate Blood Pressure 173/83 173/90 142/76 O2 Sat by Pulse 96 97 96 Oximetry 04/19/24 04/19/24 01:00 02:00 Temperature Pulse Rate 59 L 46 L Respiratory 19 18 Rate Blood Pressure 132/82 150/76 O2 Sat by Pulse 97 96 Oximetry Chest Pain MDM - MDM Was pt. sent in by a medical professional or institution (, PA, RAPID EXTRACTOR OPERATOR, urgent care, hospital, or group home...) When possible be specific @ -No Did you speak to anyone other than the patient for history (EMS, parent, family, police, friend...)? What history was obtained from this source @ -No Did you review nursing and triage notes (agree or disagree)? Why? @ -I reviewed and agree with nursing and triage notes Were old charts reviewed (outside hosp., previous admission, EMS record, old EKG, old radiological studies, urgent care reports/EKG's, group home records)? Report findings @ -No old charts were reviewed Differential Diagnosis (chest pain, altered mental status, abdominal pain women, abdominal pain men, vaginal bleeding, weakness, fever, dyspnea, syncope, headache, dizziness, GI bleed, back pain, seizure, CVA, palpatations, mental health, musculoskeletal)? @ -Differential Chest Pain: Stable Angina, Unstable Angina, STEMI, NSTEMI Aortic Dissection, Pneumothorax, Musculoskeletal, Esophageal Spasm GERD, Cholecystitis, Pancreatitis, Zoster, this is not meant to be an all-inclusive list. EKG interpreted by me (3pts min.). @ -As above X-rays interpreted by me (1pt min.). @ -Chest x-ray reveals no acute process CT interpreted by me (1pt min.). @ -None done U/S interpreted by me (1pt. min.). @ -None done What testing was considered but not performed or refused? (CT, X-rays, U/S, labs)? Why? @ -None What meds were considered but not given or refused? Why? @ -None Did you discuss the management of the patient with other professionals (professionals i.e. , PA, RAPID EXTRACTOR OPERATOR, lab, RT, psych nurse, social services counselor, electric screw driver operator, teacher, special weapons and tactics officer, keycase assembler)? Give summary @ -EMH was paged regarding patient Was smoking cessation discussed for >3mins.? @ -No Was critical care preformed (if so, how long)? @ -No Were there social determinants of health that impacted care today? How? (Homelessness, low income, unemployed, alcoholism, drug addiction, transportation, low edu. Level, literacy, decrease access to med. care, half-way, rehab)? @ -No Was there de-escalation of care discussed even if they declined (Discuss DNR or withdrawal of care, Hospice)? DNR status @ -No What co-morbidities impacted this encounter? (DM, HTN, Smoking, COPD, CAD, Cancer, CVA, ARF, Chemo, Hep., AIDS, mental health diagnosis, sleep apnea, morbid obesity)? @ -None Was patient admitted / discharged? Hospital course, mention meds given and route, prescriptions, significant lab abnormalities, going to OR and other pertinent info. @ -Patient was admitted. Patient was seen and evaluated for chest pain x 1 day. Patient has history of MD. Vital signs significant for bradycardia, otherwise unremarkable. Physical examination is unremarkable. Patient was given oral aspirin and GI cocktail consisting of Protonix, morphine, and Pepcid and his symptoms sound consistent with possible GERD. Lab work including CBC, CMP, troponin, magnesium are unremarkable. EKG reveals sinus bradycardia with no ST changes. Chest x-ray reveals no acute process. Upon reevaluation, patient states there is no improvement in his pain. I discussed with patient that I would like to admit him at this time for serial troponins and monitoring to rule out ACS as patient is high risk for cardiac event. Patient is agreeable to plan. Case was discussed with my ED attending Dr. Lozano. Undiagnosed new problem with uncertain prognosis? @ -No Drug Therapy requiring intensive monitoring for toxicity (Heparin, Nitro, Insulin, Cardizem)? @ -No Were any procedures done? @ -No Diagnosis/symptom? @ -Chest pain, rule out ACS Acute, or Chronic, or Acute on Chronic? @ -Acute Uncomplicated (without systemic symptoms) or Complicated (systemic symptoms)? @ -Uncomplicated Side effects of treatment? @ -No Exacerbation, Progression, or Severe Exacerbation? @ -No Poses a threat to life or bodily function? How? (Chest pain, [place], MD, pneumonia, PE, COPD, DKA, ARF, appy, cholecystitis, CVA, Diverticulitis, Homicidal, Suicidal, threat to staff... and all critical care pts) @ -Yes, chest pain Disposition Clinical Impression: Chest pain Disposition: ADMITTED IP TO THIS HOSP Time of Disposition: 00:55
[2024-04-19] MEDS ORDERED: MORPHINE SULFATE 4 MG/ML SYRINGE IV PRN (00:52)
[2024-04-19] MEDS ORDERED: ACETAMINOPHEN TAB 325 MG TAB PO PRN (00:52)
[2024-04-19] MEDS ORDERED: NALOXONE 0.4 MG/ML 1 ML VIAL IV PRN (00:52)
[2024-04-19] MEDS ORDERED: HYDROmorphone 0.5 MG/0.5 ML SYRINGE IVP PRN (00:52)
[2024-04-19] MEDS: ASPIRIN 81 MG PO STA (01:12)
[2024-04-19 02:59] VITALS: RESP 16; TEMP 97.7
[2024-04-19] MEDS: METOPROLOL TARTRATE 25 MG TAB PO SCH (09:10)
[2024-04-19] MEDS: ATORVASTATIN 40 MG TAB PO SCH (09:10)
[2024-04-19 09:13] VITALS: BP 122/69; PULSE 51
--- NOTE | 2024-04-19 13:08 | P.CRDCN ---
History of Present Illness History of present illness: HISTORY OF PRESENT ILLNESS: This is a 78-year-old male with a past medical history significant for coronary artery disease, hypertension, hyperlipidemia, and severe LVH. Patient follows in the office with Dr. Solomon. We have been asked to see the patient in consultation for chest pain. Patient examined at the bedside. Patient states yesterday he woke up feeling in his normal state of health. He states that he ate breakfast and then decided to walk on his treadmill. He states later on in the day he began to have some chest discomfort. He states he was having a lot of abdominal pain and belching as well. He states the pain lasted until he got to the hospital and he received morphine which helped his pain. At the time of examination he denies any chest pain or pressure. Patient's blood pressures were noted to be elevated in the [id number]. Patient states his blood pressure is usually normal when he checks it at home. Patient's blood pressure when he was last seen in the cardiology office was 118/76. DIAGNOSTICS: - EKG reveals sinus bradycardia with no signs of acute ischemia - Chest xray negative for acute process - Laboratory data: WBC 5.3. Hemoglobin 15.0. Platelet count 188. Sodium 140. Potassium 4.4. BUN 33. Creatinine 1.11. Magnesium 2.4. Troponin negative x 3 - Current home cardiac medications include metoprolol tartrate 25 mg twice a day, Lipitor 40 mg daily, aspirin 81 mg daily -Patient underwent dobutamine stress test in November 2023 which was negative for ischemia - Most recent echocardiogram obtained in March 2024 revealing severe LVH, EF 50 to 55%, trace MR - Cardiac catheterization history: March 2022 with PCI of the LAD. 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 REVIEW OF SYSTEMS: At the time of my exam: CONSTITUTIONAL: Denies fever or chills. HEENT: Denies blurred vision, vision changes, or eye pain. Denies hemoptysis CARDIOVASCULAR: Denies chest pain. Denies orthopnea. Denies PND. Denies palpitations RESPIRATORY: Denies shortness of breath. GASTROINTESTINAL: Denies abdominal pain. Denies nausea or vomiting. HEMATOLOGIC: Denies bleeding disorders. GENITOURINARY: Denies any blood in urine. SKIN: Denies pruitis. Denies rash. PHYSICAL EXAM: VITAL SIGNS: Reviewed. GENERAL: Well-developed in no acute distress. HEENT: Head is normocephalic. Pupils are equal, round. Sclerae anicteric. Mucous membranes of the mouth are moist. Neck supple. No JVD or thyromegaly LUNGS: Respirations even and unlabored. Lungs essentially clear to auscultation bilaterally. HEART: Regular rate and rhythm. S1 and S2 heard. ABDOMEN: Soft. Nondistended. Nontender. EXTREMITIES: Normal range of motion. No clubbing or cyanosis. Peripheral pulses intact. No lower extremity edema NEUROLOGIC: Awake and alert. Oriented x 3. 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 Solomon We will sign off. Please reconsult if needed. Nurse practitioner note has been reviewed by physician. Signing provider agrees with the documented findings, assessment, and plan of care documented by MANAGER GARDEN as a scribe. Past Medical History Past Medical History: GERD/Reflux, Hypertension, Myocardial Infarction ([place]) Last Myocardial Infarction Date:: March 2022 History of Any Multi-Drug Resistant Organisms: None Reported Past Surgical History: Heart Catheterization With Stent, Orthopedic Surgery Additional Past Surgical History / Comment(s): Bilateral knees patella tendon repair Past Anesthesia/Blood Transfusion Reactions: No Reported Reaction Date of Last Stent Placement:: March 2022 Past Psychological History: No Psychological Hx Reported Smoking Status: Never smoker Past Alcohol Use History: Occasional Past Drug Use History: None Reported - Past Family History Father Family Medical History: Cancer Additional Family Medical History / Comment(s): bladder Sister(s) Family Medical History: Cancer Additional Family Medical History / Comment(s): Breast Mother Family Medical History: Cancer Additional Family Medical History / Comment(s): colon Medications and Allergies Home Medications Medication Instructions Recorded Confirmed Type Famotidine [Pepcid] 20 mg PO DAILY 12/09/19 04/19/24 History Aspirin 81 mg PO DAILY #30 tab 04/11/22 04/19/24 Rx Atorvastatin [Lipitor] 40 mg PO DAILY #60 tab 04/11/22 04/19/24 Rx Metoprolol Tartrate [Lopressor] 25 mg PO BID #60 tab 04/11/22 04/19/24 Rx Nitroglycerin Sl Tabs [Nitrostat] 0.4 mg SUBLINGUAL Q5M PRN #30 tab 04/11/22 04/19/24 Rx Ascorbic Acid [Vitamin C] 1,000 mg PO DAILY 04/19/24 04/19/24 History Cholecalciferol [Vitamin D3 (25 25 mcg PO DAILY 04/19/24 04/19/24 History Mcg = 1000 Iu)] Multivitamins, Thera [Multivitamin 1 tab PO DAILY 04/19/24 04/19/24 History (formulary)] Sildenafil Citrate [Viagra] 100 mg PO DAILY PRN 04/19/24 04/19/24 History Vitamin E (Dl,Tocopheryl Acet) 400 unit PO DAILY 04/19/24 04/19/24 History [Vitamin E (400 Iu = 180 mg)] tadalafiL [Cialis] 5 mg PO DAILY PRN 04/19/24 04/19/24 History Allergies Allergy/AdvReac Type Severity Reaction Status Date / Time No Known Allergies Allergy Verified 04/19/24 12:05 Physical Exam Vitals: Vital Signs Temp Pulse Pulse Resp BP BP Pulse Ox 04/19/24 02:58 97.7 F 80 16 153/83 96 04/19/24 02:00 46 L 18 150/76 96 04/19/24 01:00 59 L 19 132/82 97 04/19/24 00:30 51 L 16 142/76 96 04/18/24 23:45 54 L 15 173/90 97 04/18/24 21:14 97.9 F 51 L 18 173/83 96 Intake and Output 04/18/24 04/19/24 04/19/24 22:59 06:59 14:59 Other: # Voids 0 Weight 90.718 kg 90.718 kg Results 04/18/24 21:27 04/18/24 21:27 Cardiac Enzymes 04/18/24 04/18/24 04/19/24 Range/Units 21:27 21:27 04:03 AST 39 (17-59) U/L Troponin I <0.012 <0.012 (0.000-0.034) ng/mL 04/19/24 Range/Units 06:45 AST (17-59) U/L Troponin I <0.012 (0.000-0.034) ng/mL Coagulation 04/18/24 Range/Units 21:27 PT 10.8 (10.0-12.5) sec APTT 23.9 (22.0-30.0) sec CBC 04/18/24 Range/Units 21:27 WBC 5.3 (3.8-10.6) k/uL RBC 4.56 (4.30-5.90) m/uL Hgb 15.0 (13.0-17.5) gm/dL Hct 44.9 (39.0-53.0) % Plt Count 188 (150-450) k/uL Comprehensive Metabolic Panel 04/18/24 Range/Units 21:27 Sodium 140 (137-145) mmol/L Potassium 4.4 (3.5-5.1) mmol/L Chloride 106 (98-107) mmol/L Carbon Dioxide 27 (22-30) mmol/L BUN 33 H (9-20) mg/dL Creatinine 1.11 (0.66-1.25) mg/dL Glucose 122 H (74-99) mg/dL Calcium 9.7 (8.4-10.2) mg/dL AST 39 (17-59) U/L ALT 34 (4-49) U/L Alkaline Phosphatase 64 (38-126) U/L Total Protein 6.5 (6.3-8.2) g/dL Albumin 4.2 (3.5-5.0) g/dL Current Medications Generic Name Dose Route Start Last Admin Trade Name Freq PRN Reason Stop Dose Admin Acetaminophen 650 mg 04/19/24 00:52 Acetaminophen Tab 325 Mg Tab PO Q6HR PRN Mild Pain or Fever > 100.5 Hydromorphone HCl 0.5 mg 04/19/24 00:52 Hydromorphone 0.5 Mg/0.5 Ml Syringe IVP Q3HR PRN Moderate Pain (Scale 4 to 6) Morphine Sulfate 4 mg 04/19/24 00:52 Morphine Sulfate 4 Mg/Ml Syringe IV Q4HR PRN Severe Pain (Scale 7 to 10) Naloxone HCl 0.2 mg 04/19/24 00:52 Naloxone 0.4 Mg/Ml 1 Ml Vial IV Q2M PRN Opioid Reversal Intake and Output 04/18/24 04/19/24 04/19/24 22:59 06:59 14:59 Other: # Voids 0 Weight 90.718 kg 90.718 kg 04/18/24 21:27 04/18/24 21:27
--- NOTE | 2024-04-19 14:12 | P.HPIM ---
History of Present Illness H&P Date: 04/19/24 History of present illness; 78-year-old male patient with past medical history significant for coronary artery disease, hypertension, hyperlipidemia and severe LVH who presented to hospital with complaint of chest pain. Patient stated that he woke up yesterday and was feeling okay. Patient ate breakfast and then decided to walk on his treadmill. Later on patient started to have chest discomfort which was more in his epigastrium associated with belching and radiating upwards to his throat with heartburn and bad taste in mouth. Patient stated the pain lasted until he got to the hospital and received morphine which helped his pain. Patient denied any fever, chills, sore throat, productive cough, shortness of breath, nausea vomiting diarrhea constipation dysuria urgency frequency weakness or numbness in extremities. In the ED patient's EKG showed sinus bradycardia with no acute changes. Chest x-ray negative for any acute process. Lab work was unremarkable. Troponin negative X.3. Patient had a dobutamine stress test in November 2023 which was negative for ischemia. Patient's most recent echocardiogram in March 2024 showed severe LVH, EF 50 to 55%, trace MR. 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 Patient admitted to internal medicine service REVIEW OF SYSTEMS: CONSTITUTIONAL: No fever, no malaise, no fatigue. HEENT: No recent visual problems or hearing problems. Denied any sore throat. CARDIOVASCULAR: No chest pain, orthopnea, PND, no palpitations, no syncope. PULMONARY: No shortness of breath, no cough, no hemoptysis. GASTROINTESTINAL: No diarrhea, no nausea, no vomiting, no abdominal pain. NEUROLOGICAL: No headaches, no weakness, no numbness. HEMATOLOGICAL: Denies any bleeding or petechiae. GENITOURINARY: Denies any burning micturition, frequency, or urgency. MUSCULOSKELETAL/RHEUMATOLOGICAL: Denies any joint pain, swelling, or any muscle pain. ENDOCRINE: Denies any polyuria or polydipsia. The rest of the 14-point review of systems is negative. PHYSICAL EXAMINATION: GENERAL: The patient is alert and oriented x3, not in any acute distress. Well developed, well nourished. HEENT: Pupils are round and equally reacting to light. EOMI. No scleral icterus. No conjunctival pallor. Normocephalic, atraumatic. No pharyngeal erythema. No thyromegaly. CARDIOVASCULAR: S1 and S2 present. No murmurs, rubs, or gallops. PULMONARY: Chest is clear to auscultation, no wheezing or crackles. ABDOMEN: Soft, nontender, nondistended, normoactive bowel sounds. No palpable organomegaly. MUSCULOSKELETAL: No joint swelling or deformity. EXTREMITIES: No cyanosis, clubbing, or pedal edema. NEUROLOGICAL: Gross neurological examination did not reveal any focal deficits. SKIN: No rashes. 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 EKG unremarkable. Troponin negative X.3. Symptoms resolved Consults cardiology. Continue home meds Dictation was produced using [employer] dictation software. please excuse any grammatical, word or spelling errors. Past Medical History Past Medical History: GERD/Reflux, Hypertension, Myocardial Infarction ([place]) Last Myocardial Infarction Date:: March 2022 History of Any Multi-Drug Resistant Organisms: None Reported Past Surgical History: Heart Catheterization With Stent, Orthopedic Surgery Additional Past Surgical History / Comment(s): Bilateral knees patella tendon repair Past Anesthesia/Blood Transfusion Reactions: No Reported Reaction Date of Last Stent Placement:: March 2022 Past Psychological History: No Psychological Hx Reported Smoking Status: Never smoker Past Alcohol Use History: Occasional Past Drug Use History: None Reported - Past Family History Father Family Medical History: Cancer Additional Family Medical History / Comment(s): bladder Sister(s) Family Medical History: Cancer Additional Family Medical History / Comment(s): Breast Mother Family Medical History: Cancer Additional Family Medical History / Comment(s): colon Medications and Allergies Home Medications Medication Instructions Recorded Confirmed Type Famotidine [Pepcid] 20 mg PO DAILY 12/09/19 04/19/24 History Aspirin 81 mg PO DAILY #30 tab 04/11/22 04/19/24 Rx Atorvastatin [Lipitor] 40 mg PO DAILY #60 tab 04/11/22 04/19/24 Rx Metoprolol Tartrate [Lopressor] 25 mg PO BID #60 tab 04/11/22 04/19/24 Rx Nitroglycerin Sl Tabs [Nitrostat] 0.4 mg SUBLINGUAL Q5M PRN #30 tab 04/11/22 04/19/24 Rx Ascorbic Acid [Vitamin C] 1,000 mg PO DAILY 04/19/24 04/19/24 History Cholecalciferol [Vitamin D3 (25 25 mcg PO DAILY 04/19/24 04/19/24 History Mcg = 1000 Iu)] Multivitamins, Thera [Multivitamin 1 tab PO DAILY 04/19/24 04/19/24 History (formulary)] Sildenafil Citrate [Viagra] 100 mg PO DAILY PRN 04/19/24 04/19/24 History Vitamin E (Dl,Tocopheryl Acet) 400 unit PO DAILY 04/19/24 04/19/24 History [Vitamin E (400 Iu = 180 mg)] tadalafiL [Cialis] 5 mg PO DAILY PRN 04/19/24 04/19/24 History Allergies Allergy/AdvReac Type Severity Reaction Status Date / Time No Known Allergies Allergy Verified 04/19/24 12:05 Physical Exam Vitals: Vital Signs Temp Pulse Pulse Resp BP BP Pulse Ox 04/19/24 07:00 97.7 F 51 L 16 122/69 95 04/19/24 02:58 97.7 F 80 16 153/83 96 04/19/24 02:00 46 L 18 150/76 96 04/19/24 01:00 59 L 19 132/82 97 04/19/24 00:30 51 L 16 142/76 96 04/18/24 23:45 54 L 15 173/90 97 04/18/24 21:14 97.9 F 51 L 18 173/83 96 Intake and Output 04/18/24 04/19/24 04/19/24 22:59 06:59 14:59 Intake Total 118 Balance 118 Intake: Oral 118 Other: # Voids 0 Weight 90.718 kg 90.718 kg Results CBC & Chem 7: 04/18/24 21:27 04/18/24 21:27 Labs: Abnormal Lab Results - Last 24 Hours (Table) 04/18/24 Range/Units 21:27 BUN 33 H (9-20) mg/dL Glucose 122 H (74-99) mg/dL Magnesium 2.4 H (1.6-2.3) mg/dL Thrombosis Risk Factor Assmnt - Choose All That Apply Each Factor Represents 1 point: Obesity (BMI >25) Each Risk Factor Represents 3 Points: Age 75 years or older Thrombosis Risk Factor Assessment Total Risk Factor Score: 4 Thrombosis Risk Factor Assessment Level: Moderate Risk
--- NOTE | 2024-04-19 14:14 | P.DS ---
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 EKG unremarkable. Troponin negative X.3. Symptoms resolved Continue home meds Cardiology consultedatypical chest pain, okay to discharge and outpatient follow-up with cardiology. Hospital course; 78-year-old male patient with past medical history significant for coronary artery disease, hypertension, hyperlipidemia and severe LVH who presented to hospital with complaint of chest pain. Patient stated that he woke up yesterday and was feeling okay. Patient ate breakfast and then decided to walk on his treadmill. Later on patient started to have chest discomfort which was more in his epigastrium associated with belching and radiating upwards to his throat with heartburn and bad taste in mouth. Patient stated the pain lasted until he got to the hospital and received morphine which helped his pain. Patient denied any fever, chills, sore throat, productive cough, shortness of breath, nausea vomiting diarrhea constipation dysuria urgency frequency weakness or numbness in extremities. In the ED patient's EKG showed sinus bradycardia with no acute changes. Chest x-ray negative for any acute process. Lab work was unremarkable. Troponin negative X.3. Patient had a dobutamine stress test in November 2023 which was negative for ischemia. Patient's most recent echocardiogram in March 2024 showed severe LVH, EF 50 to 55%, trace MR. Patient had cardiac catheterization in March 2022 with PCI of LAD, patient has SPUD SORTER of the RCA. Patient was admitted to hospital for further evaluation and management. Patient was evaluated by cardiology, atypical chest pain per cardiology, symptom resolved. Okay to discharge and outpatient follow-up. Patient's home medication resumed at discharge. Patient condition and vital stable at discharge. Follow-up with PCP in 1 week. Follow-up with cardiology as outpatient. PHYSICAL EXAMINATION: GENERAL: The patient is alert and oriented x3, not in any acute distress. Well developed, well nourished. HEENT: Pupils are round and equally reacting to light. EOMI. No scleral icterus. No conjunctival pallor. Normocephalic, atraumatic. No pharyngeal erythema. No thyromegaly. CARDIOVASCULAR: S1 and S2 present. No murmurs, rubs, or gallops. PULMONARY: Chest is clear to auscultation, no wheezing or crackles. ABDOMEN: Soft, nontender, nondistended, normoactive bowel sounds. No palpable organomegaly. MUSCULOSKELETAL: No joint swelling or deformity. EXTREMITIES: No cyanosis, clubbing, or pedal edema. NEUROLOGICAL: Gross neurological examination did not reveal any focal deficits. SKIN: No rashes. Dictation was produced using [employer] dictation software. please excuse any gram matical, word or spelling errors. Patient Condition at Discharge: Stable Plan - Discharge Summary Discharge Rx Participant: No New Discharge Prescriptions: Continue Famotidine [Pepcid] 20 mg PO DAILY Aspirin 81 mg PO DAILY #30 tab Atorvastatin [Lipitor] 40 mg PO DAILY #60 tab Ascorbic Acid [Vitamin C] 1,000 mg PO DAILY tadalafiL [Cialis] 5 mg PO DAILY PRN PRN Reason: E.D. Sildenafil Citrate [Viagra] 100 mg PO DAILY PRN PRN Reason: E.D. Metoprolol Tartrate [Lopressor] 25 mg PO BID #60 tab Nitroglycerin Sl Tabs [Nitrostat] 0.4 mg SUBLINGUAL Q5M PRN #30 tab PRN Reason: Chest Pain Vitamin E (Dl,Tocopheryl Acet) [Vitamin E (400 Iu = 180 mg)] 400 unit PO DAILY Multivitamins, Thera [Multivitamin (formulary)] 1 tab PO DAILY Cholecalciferol [Vitamin D3 (25 Mcg = 1000 Iu)] 25 mcg PO DAILY Discharge Medication List Famotidine [Pepcid] 20 mg PO DAILY 12/09/19 [History] Aspirin 81 mg PO DAILY #30 tab 04/11/22 [Rx] Atorvastatin [Lipitor] 40 mg PO DAILY #60 tab 04/11/22 [Rx] Metoprolol Tartrate [Lopressor] 25 mg PO BID #60 tab 04/11/22 [Rx] Nitroglycerin Sl Tabs [Nitrostat] 0.4 mg SUBLINGUAL Q5M PRN #30 tab 04/11/22 [Rx] Ascorbic Acid [Vitamin C] 1,000 mg PO DAILY 04/19/24 [History] Cholecalciferol [Vitamin D3 (25 Mcg = 1000 Iu)] 25 mcg PO DAILY 04/19/24 [History] Multivitamins, Thera [Multivitamin (formulary)] 1 tab PO DAILY 04/19/24 [History] Sildenafil Citrate [Viagra] 100 mg PO DAILY PRN 04/19/24 [History] Vitamin E (Dl,Tocopheryl Acet) [Vitamin E (400 Iu = 180 mg)] 400 unit PO DAILY 04/19/24 [History] tadalafiL [Cialis] 5 mg PO DAILY PRN 04/19/24 [History] Follow up Appointment(s)/Referral(s): Trevor Solomon DO [STAFF PHYSICIAN] - 1 Week Elvis Bonilla DO [Primary Care Provider] - 1-2 days Discharge Disposition: HOME SELF-CARE
[2024-04-20] MEDS ORDERED: ASPIRIN 81 MG PO SCH (09:00)
== END 2024-04-19 13:52 | disposition home or self-care (01) ==
LOC: EC 21:11 → 6NMEDSUR 04-19 00:55
PROVIDERS: ADMIT Internal Medicine; ATTEND Internal Medicine
DX: R07.89 Other chest pain (principal); I25.10 Atherosclerotic heart disease of native coronary artery without angina pectoris; K21.9 Gastro-esophageal reflux disease without esophagitis; I11.9 Hypertensive heart disease without heart failure; I25.82 Chronic total occlusion of coronary artery; I34.0 Nonrheumatic mitral (valve) insufficiency; E78.5 Hyperlipidemia, unspecified; R00.1 Bradycardia, unspecified; M54.9 Dorsalgia, unspecified; M79.601 Pain in right arm; I25.2 Old myocardial infarction; E66.9 Obesity, unspecified; Z68.28 Body mass index [BMI] 28.0-28.9, adult; Z79.82 Long term (current) use of aspirin; Z79.02 Long term (current) use of antithrombotics/antiplatelets; Z79.899 Other long term (current) drug therapy; Z95.5 Presence of coronary angioplasty implant and graft
CPT/HCPCS: 96374; 96375; 99285; 36415; 93005; 80053; 83690; 83735; 84484 ×2; 85025; 85610; 85730; 71046; G0378; J3490; J2270; J2470

== ENCOUNTER 2024-06-24 06:43 | Emergency (ER) | payer MEDICARE ==
--- NOTE | 2024-06-24 07:05 | ED ---
Abdominal Pain HPI - General Stated Complaint: ABD Pain Time Seen by Provider: 06/24/24 07:04 Source: patient, RN notes reviewed Mode of arrival: wheelchair Limitations: no limitations - History of Present Illness Initial Comments: 78-year-old male presented to the ER with a chief complaint of right upper quadrant abdominal pain. Patient states last night after eating sloppy [employer] for dinner he started to experience an intense 8 out of 10 sharp right upper quadrant abdominal pain. Patient does report some radiation to his right flank. He was unable to sleep due to the pain and was pacing throughout the night. He does report nausea. Patient does report he took old pain medication with minor relief. Denies any diarrhea or vomiting. Denies any bowel surgeries. Denies any fevers or chills. No urinary complaints. - Related Data Home Medications Medication Instructions Recorded Confirmed Famotidine [Pepcid] 20 mg PO DAILY 12/09/19 04/19/24 Ascorbic Acid [Vitamin C] 1,000 mg PO DAILY 04/19/24 04/19/24 Cholecalciferol [Vitamin D3 (25 25 mcg PO DAILY 04/19/24 04/19/24 Mcg = 1000 Iu)] Multivitamins, Thera [Multivitamin 1 tab PO DAILY 04/19/24 04/19/24 (formulary)] Sildenafil Citrate [Viagra] 100 mg PO DAILY PRN 04/19/24 04/19/24 Vitamin E (Dl,Tocopheryl Acet) 400 unit PO DAILY 04/19/24 04/19/24 [Vitamin E (400 Iu = 180 mg)] tadalafiL [Cialis] 5 mg PO DAILY PRN 04/19/24 04/19/24 Previous Rx's Medication Instructions Recorded Aspirin 81 mg PO DAILY #30 tab 04/11/22 Atorvastatin [Lipitor] 40 mg PO DAILY #60 tab 04/11/22 Metoprolol Tartrate [Lopressor] 25 mg PO BID #60 tab 04/11/22 Nitroglycerin Sl Tabs [Nitrostat] 0.4 mg SUBLINGUAL Q5M PRN #30 tab 04/11/22 Ondansetron Odt [Zofran Odt] 4 mg PO Q8HR PRN #10 tab 06/24/24 Allergies Allergy/AdvReac Type Severity Reaction Status Date / Time No Known Allergies Allergy Verified 06/24/24 07:09 Review of Systems ROS Statement: Those systems with pertinent positive or pertinent negative responses have been documented in the HPI. ROS Other: All systems not noted in ROS Statement are negative. Past Medical History Past Medical History: GERD/Reflux, Hypertension, Myocardial Infarction (NV) Last Myocardial Infarction Date:: March 2022 History of Any Multi-Drug Resistant Organisms: None Reported Past Surgical History: Heart Catheterization With Stent, Orthopedic Surgery Additional Past Surgical History / Comment(s): Bilateral knees patella tendon repair Past Anesthesia/Blood Transfusion Reactions: No Reported Reaction Date of Last Stent Placement:: March 2022 Past Psychological History: No Psychological Hx Reported Smoking Status: Never smoker Past Alcohol Use History: Occasional Past Drug Use History: None Reported - Past Family History Father Family Medical History: Cancer Additional Family Medical History / Comment(s): bladder Sister(s) Family Medical History: Cancer Additional Family Medical History / Comment(s): Breast Mother Family Medical History: Cancer Additional Family Medical History / Comment(s): colon General Exam - General Exam Comments Initial Comments: Visual Physical Exam General: Well-appearing, nontoxic, no acute distress. Head: Normocephalic, atraumatic Eyes: PERRLA, EOMI ENT: Airway patent Chest: Nonlabored breathing Skin: No visual rash, normal skin tone Neuro: Alert and oriented 3 Musculoskeletal: No gross abnormalities General appearance: alert, in no apparent distress Respiratory exam: Present: normal lung sounds bilaterally. Absent: respiratory distress, wheezes, rales, rhonchi, stridor Cardiovascular Exam: Present: regular rate, normal rhythm, normal heart sounds. Absent: systolic murmur, diastolic murmur, rubs, gallop, clicks GI/Abdominal exam: Present: soft, tenderness (Right upper quadrant), normal bowel sounds Extremities exam: Present: normal inspection, full ROM, normal capillary refill. Absent: tenderness, pedal edema, joint swelling, calf tenderness Neurological exam: Present: alert, oriented X3, CN II-XII intact Skin exam: Present: warm, dry, intact, normal color. Absent: rash Course Vital Signs 06/24/24 06/24/24 06/24/24 07:07 08:07 10:10 Temperature 97.6 F 97.9 F Pulse Rate 57 L 51 L Respiratory 15 16 Rate Blood Pressure 148/74 184/92 O2 Sat by Pulse 97 97 Oximetry 06/24/24 11:22 Temperature 98.3 F Pulse Rate 62 Respiratory 18 Rate Blood Pressure 173/81 O2 Sat by Pulse 96 Oximetry - Reevaluation(s) Reevaluation #1: 06/24/24 10:07 Patient reevaluated. Patient reporting improvement of pain. No signs acute distress Medical Decision Making - Medical Decision Making I performed the quick note portion of this chart. Electronically signed by Clayton Lim PA-C Was pt. sent in by a medical professional or institution ([facility], CLAIMS ANALYST, urgent care, hospital, or group home...) When possible be specific @ -No Did you speak to anyone other than the patient for history (EMS, parent, family, police, friend...)? What history was obtained from this source @ -No Did you review nursing and triage notes (agree or disagree)? Why? @ -I reviewed and agree with nursing and triage notes Were old charts reviewed (outside hosp., previous admission, EMS record, old EKG, old radiological studies, urgent care reports/EKG's, group home records)? Report findings @ -No old charts were reviewed Differential Diagnosis (chest pain, altered mental status, abdominal pain women, abdominal pain men, vaginal bleeding, weakness, fever, dyspnea, syncope, headache, dizziness, GI bleed, back pain, seizure, CVA, palpatations, mental health, musculoskeletal)? @ -Differential Abdominal Pain Men:Appendicitis, cholecystitis, diverticulosis, ischemic bowel, pancreatitis, hepatitis, UTI, gastroenteritis, AAA, incarcerated hernia, bowel obstruction, constipation, inflammatory bowel, hepatitis, peptic ulcer disease, splenic infarction, perforated viscus, testicular torsion, this is not meant to be an all-inclusive list EKG interpreted by me (3pts min.). @ -None done X-rays interpreted by me (1pt min.). @ -None done CT interpreted by me (1pt min.). @ -None done U/S interpreted by me (1pt. min.). @ -Gallbladder ultrasound showing a small stone. No evidence of obstructive process. Common bile duct 0.39mm. What testing was considered but not performed or refused? (CT, X-rays, U/S, labs)? Why? @ -None What meds were considered but not given or refused? Why? @ -None Did you discuss the management of the patient with other professionals (professionals i.e. , PA, CLAIMS ANALYST, lab, RT, psych nurse, 7th grade social studies teacher, hadoop infrastructure architect, teacher, workplace rehabilitation officer, case resolution specialist)? Give summary @ -No Was smoking cessation discussed for >3mins.? @ -No Was critical care preformed (if so, how long)? @ -No Were there social determinants of health that impacted care today? How? (Homelessness, low income, unemployed, alcoholism, drug addiction, transportation, low edu. Level, literacy, decrease access to med. care, [place] [facility], rehab)? @ -No Was there de-escalation of care discussed even if they declined (Discuss DNR or withdrawal of care, Hospice)? DNR status @ -No What co-morbidities impacted this encounter? (DM, HTN, Smoking, COPD, CAD, Cancer, CVA, ARF, Chemo, Hep., AIDS, mental health diagnosis, sleep apnea, morbi d obesity)? @ -None Was patient admitted / discharged? Hospital course, mention meds given and rout e, prescriptions, significant lab abnormalities, going to OR and other pertinent info. @ -Discharge. 78-year-old male presented to ER with a chief complaint of right upper quadrant abdominal pain. History and physical exam completed vitals within normal limits. Exam remarkable for right upper quadrant abdominal tenderness. Normal bowel sounds. No rebound or guarding. Laboratory studies obtained unremarkable. Urinalysis without evidence of infection or dehydration. Gallbladder ultrasound significant for a gallstone. No acute process. Patient received symptomatic control in the ER, with improvement. Pain believed to be biliary colic. Upon reevaluation, patient resting comfortably exam room in no signs of acute distress. Results discussed with patient, all questions ans wered. Advise close follow-up with surgeon for further evaluation. Strict return parameters discussed. Patient discharged with a starter pack of Tylenol threes and Zofran. Patient discharged in stable condition. Patient verbally expressed understanding agree with care plan. Case discussed with ED attending, Dr. Babcock. Undiagnosed new problem with uncertain prognosis? @ -No Drug Therapy requiring intensive monitoring for toxicity (Heparin, Nitro, Insulin, Cardizem)? @ -No Were any procedures done? @ -No Diagnosis/symptom? @ -Gallstone/abdominal pain Acute, or Chronic, or Acute on Chronic? @ -Acute Uncomplicated (without systemic symptoms) or Complicated (systemic symptoms)? @ -Uncomplicated Side effects of treatment? @ -No Exacerbation, Progression, or Severe Exacerbation? @ -No Poses a threat to life or bodily function? How? (Chest pain, [place], NV, pneumonia, PE, COPD, DKA, ARF, appy, cholecystitis, CVA, Diverticulitis, Homicidal, Suicidal, threat to staff... and all critical care pts) @ -No - Lab Data Result diagrams: 06/24/24 08:15 06/24/24 08:15 Lab Results 06/24/24 06/24/24 06/24/24 Range/Units 08:15 08:15 08:15 WBC 7.2 (3.8-10.6) k/uL RBC 4.85 (4.30-5.90) m/uL Hgb 15.8 (13.0-17.5) gm/dL Hct 47.5 (39.0-53.0) % MCV 97.8 (80.0-100.0) fL MCH 32.5 (25.0-35.0) pg MCHC 33.2 (31.0-37.0) g/dL RDW 12.2 (11.5-15.5) % Plt Count 200 (150-450) k/uL MPV 7.3 Neutrophils % 82 % Lymphocytes % 11 % Monocytes % 5 % Eosinophils % 0 % Basophils % 0 % Neutrophils # 5.9 (1.3-7.7) k/uL Lymphocytes # 0.8 L (1.0-4.8) k/uL Monocytes # 0.3 (0-1.0) k/uL Eosinophils # 0.0 (0-0.7) k/uL Basophils # 0.0 (0-0.2) k/uL Sodium 140 (137-145) mmol/L Potassium 5.0 (3.5-5.1) mmol/L Chloride 105 (98-107) mmol/L Carbon Dioxide 29 (22-30) mmol/L Anion Gap 6 mmol/L BUN 29 H (9-20) mg/dL Creatinine 1.06 (0.66-1.25) mg/dL Est GFR (CKD-EPI)AfAm 78 (>60 ml/min/1.73 sqM) Est GFR (CKD-EPI)NonAf 68 (>60 ml/min/1.73 sqM) Glucose 154 H (74-99) mg/dL Plasma Lactic Acid Krish 1.2 (0.7-2.0) mmol/L Calcium 10.1 (8.4-10.2) mg/dL Total Bilirubin 0.9 (0.2-1.3) mg/dL AST 45 (17-59) U/L ALT 36 (4-49) U/L Alkaline Phosphatase 72 (38-126) U/L Total Protein 6.9 (6.3-8.2) g/dL Albumin 4.3 (3.5-5.0) g/dL Amylase 58 (30-110) U/L Lipase 47 (23-300) U/L Urine Color Urine Appearance (Clear) Urine pH (5.0-8.0) Ur Specific [place] (1.001-1.035) Urine Protein (Negative) Urine Glucose (UA) (Negative) Urine Ketones (Negative) Urine Blood (Negative) Urine Nitrite (Negative) Urine Bilirubin (Negative) Urine Urobilinogen (<2.0) mg/dL Ur Leukocyte Esterase (Negative) 06/24/24 Range/Units 10:19 WBC (3.8-10.6) k/uL RBC (4.30-5.90) m/uL Hgb (13.0-17.5) gm/dL Hct (39.0-53.0) % MCV (80.0-100.0) fL MCH (25.0-35.0) pg MCHC (31.0-37.0) g/dL RDW (11.5-15.5) % Plt Count (150-450) k/uL MPV Neutrophils % % Lymphocytes % % Monocytes % % Eosinophils % % Basophils % % Neutrophils # (1.3-7.7) k/uL Lymphocytes # (1.0-4.8) k/uL Monocytes # (0-1.0) k/uL Eosinophils # (0-0.7) k/uL Basophils # (0-0.2) k/uL Sodium (137-145) mmol/L Potassium (3.5-5.1) mmol/L Chloride (98-107) mmol/L Carbon Dioxide (22-30) mmol/L Anion Gap mmol/L BUN (9-20) mg/dL Creatinine (0.66-1.25) mg/dL Est GFR (CKD-EPI)AfAm (>60 ml/min/1.73 sqM) Est GFR (CKD-EPI)NonAf (>60 ml/min/1.73 sqM) Glucose (74-99) mg/dL Plasma Lactic Acid Krish (0.7-2.0) mmol/L Calcium (8.4-10.2) mg/dL Total Bilirubin (0.2-1.3) mg/dL AST (17-59) U/L ALT (4-49) U/L Alkaline Phosphatase (38-126) U/L Total Protein (6.3-8.2) g/dL Albumin (3.5-5.0) g/dL Amylase (30-110) U/L Lipase (23-300) U/L Urine Color Light Yellow Urine Appearance Clear (Clear) Urine pH 5.5 (5.0-8.0) Ur Specific [place] 1.020 (1.001-1.035) Urine Protein Negative (Negative) Urine Glucose (UA) Negative (Negative) Urine Ketones Negative (Negative) Urine Blood Negative (Negative) Urine Nitrite Negative (Negative) Urine Bilirubin Negative (Negative) Urine Urobilinogen <2.0 (<2.0) mg/dL Ur Leukocyte Esterase Negative (Negative) - Radiology Data Radiology results: report reviewed, image reviewed Disposition Clinical Impression: Gallstone, Abdominal pain Disposition: HOME SELF-CARE Condition: Stable Instructions (If sedation given, give patient instructions): Abdominal Pain (ED) Additional Instructions: Follow-up with surgery and primary care. You may take Zofran every 8 hours for nausea. Return to the ER for any new or worsening concerns Prescriptions: Ondansetron Odt [Zofran Odt] 4 mg PO Q8HR PRN #10 tab PRN Reason: Nausea Is patient prescribed a controlled substance at d/c from ED?: No Referrals: Elvis Bonilla DO [Primary Care Provider] - 1-2 days Kathleen Butt DO [Doctor of Osteopathic Medicine] - 1-2 days Time of Disposition: 11:04
[2024-06-24 08:29] LABS: Basophils % (A) 0 %; Eosinophils % (A) 0 %; HCT 47.5 % (39.0-53.0); HGB 15.8 gm/dL (13.0-17.5); Lymphocytes # (A) 0.8 k/uL (1.0-4.8); Lymphocytes % (A) 11 %; MCH 32.5 pg (25.0-35.0); MCHC 33.2 g/dL (31.0-37.0); MCV 97.8 fL (80.0-100.0); Mean Platelet Volume 7.3; Monocytes # (A) 0.3 k/uL (0-1.0); Monocytes % (A) 5 %; Neutrophils # (A) 5.9 k/uL (1.3-7.7); Neutrophils % (A) 82 %; Platelet Count 200 k/uL (150-450); RBC 4.85 m/uL (4.30-5.90); RDW 12.2 % (11.5-15.5); WBC 7.2 k/uL (3.8-10.6)
[2024-06-24 09:02] LABS: ALT 36 U/L (4-49); AST 45 U/L (17-59); African American GFR (CKD) 78 (>60 ml/min/1.73 sqM); Albumin 4.3 g/dL (3.5-5.0); Alkaline Phosphatase 72 U/L (38-126); Amylase 58 U/L (30-110); Anion Gap 6 mmol/L; Blood Urea Nitrogen 29 mg/dL (9-20); Calcium 10.1 mg/dL (8.4-10.2); Carbon Dioxide 29 mmol/L (22-30); Chloride 105 mmol/L (98-107); Glucose 154 mg/dL (74-99); Lipase 47 U/L (23-300); Non-African American GFR(CKD) 68 (>60 ml/min/1.73 sqM); Sodium 140 mmol/L (137-145); Total Bilirubin 0.9 mg/dL (0.2-1.3); Total Protein 6.9 g/dL (6.3-8.2)
[2024-06-24] MEDS: SODIUM CHLORIDE 0.9% 1,000 ML IV STA (09:05)
[2024-06-24] MEDS: ONDANSETRON 4 MG/2 ML VIAL IVP STA (09:05)
[2024-06-24] MEDS: HYDROmorphone 0.5 MG/0.5 ML SYRINGE IVP STA (09:06)
[2024-06-24 10:26] LABS: Appearance,Urine Clear (Clear); Bilirubin,Urine Negative (Negative); Blood,Urine Negative (Negative); Color,Urine Light Yellow; Glucose,Urine (UA) Negative (Negative); Ketones,Urine Negative (Negative); Leukocyte Esterase,Urine Negative (Negative); Nitrite,Urine Negative (Negative); PH, Urine 5.5 (5.0-8.0); Protein,Urine Negative (Negative); Urobilinogen,Urine <2.0 mg/dL (<2.0)
--- NOTE | 2024-06-24 10:34 | US ---
EXAMINATION TYPE: US gallbladder DATE OF EXAM: 06/24/2024 COMPARISON: US 2014 CLINICAL INDICATION: Male, 78 years old with history of RUQ abd pain; RUQ abdominal pain x 14 hours. TECHNIQUE: Multiple sonographic images of the right upper quadrant are obtained. FINDINGS: EXAM MEASUREMENTS: Liver Length: 13.8 cm Gallbladder Wall: 0.26 cm CBD: 0.39 cm Right Kidney: 10.6 x 5.6 x 5.9 cm ENGINE BOSS NOTES: Exam is limited due to gas. Pancreas: Not well seen. Liver: Appears coarse in echotexture. Gallbladder: Rounded in shape. Measures 6.3 cm in width. *Hyperechoic focus with posterior shadowi ng seen within the gallbladder: 0.9 x 0.9 x 0.8 cm. Evidence for sonographic Almeida's sign: No CBD: Appears wnl Right Kidney: No hydronephrosis or masses seen IMPRESSION: 1. Small gallstone [facility], , 06/24/2024 10:31 AM
[2024-06-24] MEDS: ACET/COD 300 MG/30 MG STARTER PACK 6 TAB BTL PO STA (11:20)
[2024-06-24 11:22] VITALS: BP 173/81; PULSE 62; RESP 18; TEMP 98.3
== END 2024-06-24 11:22 | disposition home or self-care (01) ==
LOC: EC 06:43
DX: K80.20 Calculus of gallbladder without cholecystitis without obstruction (principal)
CPT/HCPCS: 36415; 76705; 80053; 81003; 82150; 83605; 83690; 85025; 96361; 96374; 96375; 99284

== ENCOUNTER 2024-08-18 09:47 | Day surgery (SDC) | payer MEDICARE ==
[~2024-08-18 09:47] MED LIST changes: +LIDOCAINE 1% (10MG/ML) FOR IV START INTRADERMA PRN; -LIDOCAINE 1% 20 ML VIAL (10MG/ML) FOR IV START INTRADERMA PRN
[2024-08-18 10:13] VITALS: TEMP 98.3
[2024-08-18] MEDS: IV FLUID CONTINUATION 1,000 ML IV ONE ×2 (10:13→10:39)
[2024-08-18] MEDS ORDERED: PROPOFOL 10 MG/ML 20 ML VIAL IV ONE (10:40)
[2024-08-18] MEDS ORDERED: LIDOCAINE 2% (PF) 20 MG/ML 5 ML VIAL ONE (10:40)
--- NOTE | 2024-08-18 10:53 | P.PCN ---
Date of Procedure: 08/18/24 Preoperative Diagnosis: GERD Postoperative Diagnosis: Small hiatal hernia Duodenitis Procedure(s) Performed: EGD with biopsy Anesthesia: ANGLE Surgeon: Kathleen Butt Pathology: other (Biopsies of duodenum, antrum, GE junction) Condition: stable Disposition: same day Indications for Procedure: 78-year-old male presents today for upper endoscopy. He has had recent increase in GERD. He states that he was on a medication for many years and has recently switched to Pepcid as the previous medication was not effective. The Pepcid has been somewhat effective. He also complains of belching. He does state that this occurs secondary to certain types of foods. Risks, benefits and alternatives were provided to the patient. Operative Findings: Small hiatal hernia Duodenitis Description of Procedure: The patient was brought to the endoscopy suite and placed in left lateral decubitus position and adequate sedation was achieved using conscious sedation. A bite-block was placed and an endoscope was placed in the oropharynx and advanced under endoscopic visualization. The endoscope was advanced through the esophagus into the stomach, through the gastric antrum and in through the pylorus. The third portion of duodenum was visualized. The endoscope was then slowly withdrawn. The first portion of duodenum was noted to have inflammatory changes. Biopsies were taken. Similarly, the antrum was noted to have mild inflammatory changes. Biopsies were taken. The gastric body distended normally and the gastric folds appeared normal and flattened with insufflation. A retroflexed view of the fundus and GE junction revealed a mild sized hiatal hernia. The esophagus appeared endoscopically normal and biopsies were taken of the GE junction. Excess air was removed and the scope was withdrawn and the procedure was completed. The patient was then transferred to recovery unit in stable condition.
[2024-08-18 11:21] VITALS: BP 122/81; PULSE 52; RESP 14
== END 2024-08-18 12:05 | disposition home or self-care (01) ==
LOC: ORWHC2ENDO 09:47
PROVIDERS: ATTEND Surgery
DX: K29.50 Unspecified chronic gastritis without bleeding (principal); K29.80 Duodenitis without bleeding; K21.9 Gastro-esophageal reflux disease without esophagitis; K44.9 Diaphragmatic hernia without obstruction or gangrene; D72.10 Eosinophilia, unspecified; I10 Essential (primary) hypertension; E78.5 Hyperlipidemia, unspecified; F17.210 Nicotine dependence, cigarettes, uncomplicated; Z79.899 Other long term (current) drug therapy
CPT/HCPCS: 88305; 43239; J2704; J2003

== ENCOUNTER → 2025-01-12 | Outpatient (CLI) | payer MEDICARE ==
[2025-01-12 15:36] LABS: HGB 15.9 g/dL (13.0-17.0); MCH 32.1 pg (27.0-32.0); MCHC 33.8 g/dL (32.0-37.0); MCV 94.9 FL (80.0-97.0); Mean Platelet Volume 9.7 FL (9.5-12.2); NRBC Per 100 WBC 0 X 10*3/uL (0.00-0.01); Platelet Count 191 X 10*3/uL (140-440); RBC 4.95 X 10*6/uL (4.40-5.60); RDW 12.3 % (11.5-14.5); WBC 6.21 X 10*3/uL (4.50-10.00)
== END | disposition home or self-care (01) ==
LOC: LABPAT 10:08
PROVIDERS: ATTEND Anesthesiology
DX: Z01.812 Encounter for preprocedural laboratory examination (principal)
CPT/HCPCS: 36415; 85027

== ENCOUNTER 2025-01-13 11:17 | Day surgery (SDC) | payer MEDICARE ==
[2025-01-09 12:59] VITALS: BMI 28.6
[~2025-01-13 11:17] MED LIST changes: +INDOCYANINE GREEN 25 MG VIAL IV NR; -LACTATED RINGERS 1,000 ML IV SCH; +MIDAZOLAM 2 MG/2 ML VIAL IV PRN; +fentaNYL (PF) 50 MCG/ML 2 ML AMP IVP PRN
[2025-01-13] MEDS: ONDANSETRON 4 MG/2 ML VIAL IVP ONE (12:06)
[2025-01-13] MEDS: LACTATED RINGERS 1,000 ML IV SCH (12:06)
[2025-01-13] MEDS: DEXAMETHASONE SOD PHOSPHATE 4 MG/ML 1 ML VIAL IV ONE (12:06)
[2025-01-13] MEDS: HEPARIN SODIUM,PORCINE 5,000 UNIT/ML 1 ML VIAL SQ PRN (12:07)
[2025-01-13] MEDS ORDERED: fentaNYL (PF) 50 MCG/ML 2 ML AMP ONE (12:41)
[2025-01-13] MEDS ORDERED: MIDAZOLAM 2 MG/2 ML VIAL ONE (12:41)
[2025-01-13] MEDS ORDERED: HYDROmorphone (PF) 1 MG/ML ONE (12:41)
[2025-01-13] MEDS ORDERED: GLYCOPYRROLATE 0.2 MG/ML 2 ML VIAL ONE (12:41)
[2025-01-13] MEDS ORDERED: ROCURONIUM 10 MG/ML (5 ML VIAL) IV ONE (12:41)
[2025-01-13] MEDS ORDERED: NEOSTIGMINE 1 MG/ML 10 ML VIAL ONE (12:41)
[2025-01-13] MEDS ORDERED: SUCCINYLCHOLINE CHLORIDE 200 MG/10 ML VIAL IV ONE (12:41)
[2025-01-13] MEDS ORDERED: PHENYLEPHRINE-0.9% NACL SYG 1,000 MCG/10 ML SYRINGE ONE (12:41)
[2025-01-13] MEDS: INDOCYANINE GREEN 25 MG VIAL IV STA (12:41)
[2025-01-13] MEDS ORDERED: LIDOCAINE 1% INJ 10MG/ML (20 ML MDV) ONE (12:41)
[2025-01-13] MEDS ORDERED: PROPOFOL 10 MG/ML 20 ML VIAL IV ONE (12:41)
[2025-01-13] MEDS: IV FLUID CONTINUATION 1,000 ML IV ONE ×2 (12:42→14:10)
[2025-01-13] MEDS: ceFAZolin 2 GM in DEXTROSE 5% IN WATER 50 ML IVPB PRN (12:46)
[2025-01-13] MEDS: BUPIVACAINE (PF) 0.25% 30 ML VIAL SQ ONE ×2 (13:12)
--- NOTE | 2025-01-13 14:02 | P.OP ---
Date of Procedure: 01/13/25 Preoperative Diagnosis: Chronic calculus cholecystitis Postoperative Diagnosis: Chronic calculus cholecystitis Procedure(s) Performed: Robotic cholecystectomy Anesthesia: TYE Surgeon: Kathleen Butt Pathology: other (Gallbladder and contents) Condition: stable Disposition: same day Indications for Procedure: 79-year-old male presented to the surgery clinic with complaint of right upper quadrant abdominal pain. On workup he is found to have cholelithiasis. Likely suffering from chronic calculus cholecystitis. Recommendation was made for robotic cholecystectomy. Risks, benefits and alternatives including risks of bleeding, infection and biliary injury were discussed with the patient. All que stions answered prior to attending the operating suite. Operative Findings: Distended gallbladder Description of Procedure: Patient was brought to the operating suite and placed in supine position on the operating table. Sedation was provided by anesthesia and the patient underwent endotracheal intubation. The patient was then prepped and draped in regular sterile fashion. An infraumbilical incision was made and dissection was carried to the fascia. The fascia was incised and an 8 mm trocar was placed. Pneumoperitoneum was achieved. The patient was then placed in appropriate position. 2 additional 8 mm trocars were placed in the right upper quadrant and 1 in the left upper quadrant. Robot was then docked. The gallbladder was then grasped and retracted superiorly and laterally. The gallbladder appeared distended. Dissection was carried along the infundibulum towards the cystic duct and the cystic duct was skeletonized. The cystic artery was similarly skeletonized and critical view was obtained. ICG was used to confirm anatomy. 2 clips were placed proximally on the cystic duct and 1 was placed distally and the cystic duct was ligated. Similarly, 2 clips were placed proximally on the cystic artery and 1 was placed distally and the cystic artery was ligated. Cautery was then used to dissect the gallbladder off of the gallbladder fossa. The gallbladder was then placed in an Endo Catch bag and removed from the abdomen from the infraumbilical incision site. Irrigation was placed and suction in the right upper quadrant. Hemostasis was noted to be maintained. No bile leakage was noted. The infraumbilical fascial incision was closed under direct visualization using an 0 Vicryl suture and Nicola-Gianni device. Pneumoperitoneum was released. All ports removed from the abdomen. All port sites were closed with 4-0 Vicryl subcuticular suture. Sterile dressing was applied. The patient was taken to postanesthesia care unit in stable condition. Sponge and instrument count correct x 2.
[2025-01-13 14:06] VITALS: TEMP 97
[2025-01-13] MEDS: HYDROmorphone 0.5 MG/0.5 ML SYRINGE IVP PRN (14:12)
[2025-01-13 14:50] VITALS: RESP 18
[2025-01-13 16:46] VITALS: BP 156/80; PULSE 56
== END 2025-01-13 17:48 | disposition home or self-care (01) ==
LOC: OR 11:17
PROVIDERS: ATTEND Surgery
DX: K80.10 Calculus of gallbladder with chronic cholecystitis without obstruction (principal); I25.2 Old myocardial infarction; Z95.5 Presence of coronary angioplasty implant and graft; E78.5 Hyperlipidemia, unspecified; Z79.899 Other long term (current) drug therapy; Z87.891 Personal history of nicotine dependence
CPT/HCPCS: 47562; S2900; 88304

== ENCOUNTER 2025-01-15 12:15 | Inpatient (IN) | payer MEDICARE ==
--- NOTE | 2025-01-15 12:36 | ED ---
General Adult HPI - General Chief complaint: Recheck/Abnormal Lab/Rx Stated complaint: Post-op pain Time Seen by Provider: 01/15/25 12:20 Source: patient Mode of arrival: ambulatory Limitations: no limitations - History of Present Illness Initial comments: Dictation was produced using [employer] dictation software. please excuse any grammatical, word or spelling errors. Chief Complaint: 79-year-old male with postoperative abdominal pain and nausea History of Present Illness: Patient is a 71-year-old male postop day 2 after laparoscopic cholecystectomy. Since his surgery he has been having worsening nausea. Denies any fevers. Not sure if the pain that he is experiencing is postoperative pain that is normal or if it has something different. Patient thought that perhaps me was related to not having a bowel movement. Thought about getting an enema however said brought patient to the ER. The ROS documented in this emergency department record has been reviewed and confirmed by me. Those systems with pertinent positive or negative responses have been documented in the HPI. All other systems are other negative and/or noncontributory. - Related Data Home Medications Medication Instructions Recorded Confirmed Ascorbic Acid [Vitamin C] 1,000 mg PO DAILY 04/19/24 01/15/25 Cholecalciferol [Vitamin D3 (25 25 mcg PO DAILY 04/19/24 01/15/25 Mcg = 1000 Iu)] Multivitamins, Thera [Multivitamin 1 tab PO DAILY 04/19/24 01/15/25 (formulary)] Famotidine 20 mg PO DAILY 01/09/25 01/15/25 Atorvastatin [Lipitor] 40 mg PO HS 01/15/25 01/15/25 Zinc Gluconate [Zinc] 50 mg PO DAILY 01/15/25 01/15/25 Previous Rx's Medication Instructions Recorded Aspirin 81 mg PO DAILY #30 tab 04/11/22 Metoprolol Tartrate [Lopressor] 25 mg PO BID #60 tab 04/11/22 HYDROcodone/APAP 5-325MG [[place] 1 tab PO Q6HR PRN 3 Days #12 tab 01/13/25 5-325] Allergies Allergy/AdvReac Type Severity Reaction Status Date / Time No Known Allergies Allergy Verified 01/15/25 13:39 Review of Systems ROS Statement: Those systems with pertinent positive or pertinent negative responses have been documented in the HPI. ROS Other: All systems not noted in ROS Statement are negative. Past Medical History Past Medical History: GERD/Reflux, Hyperlipidemia, Hypertension, Myocardial Infarction (VT), Osteoarthritis (OA) Last Myocardial Infarction Date:: March 2022 History of Any Multi-Drug Resistant Organisms: None Reported Past Surgical History: Cholecystectomy, Heart Catheterization With Stent, Hernia Repair, Orthopedic Surgery Additional Past Surgical History / Comment(s): Bilateral knees patella tendon repair, right rotator cuff repair. Past Anesthesia/Blood Transfusion Reactions: No Reported Reaction, Family History of Problems w/ Anesthesia, Motion Sickness Additional Past Anesthesia/Blood Transfusion Reaction / Comment(s): Mother had reaction to morphine. Date of Last Stent Placement:: March 2022 Past Psychological History: No Psychological Hx Reported Smoking Status: Former smoker Past Alcohol Use History: None Reported Past Drug Use History: None Reported - Past Family History Father Family Medical History: Cancer Additional Family Medical History / Comment(s): Bladder cancer. Sister(s) Family Medical History: Cancer Additional Family Medical History / Comment(s): Breast cancer. Mother Family Medical History: Cancer Additional Family Medical History / Comment(s): Colon cancer. General Exam - General Exam Comments Initial Comments: PHYSICAL EXAM: General Impression: Alert and oriented x3, not in acute distress HEENT: Normocephalic atraumatic, extra-ocular movements intact, pupils equal and reactive to light bilaterally, mucous membranes moist. Cardiovascular: Heart regular rate and rhythm Chest: Able to complete full sentences, no retractions, no tachypnea Abdomen: abdomen soft, diffuse palpatory abdominal tenderness, non-distended, no organomegaly Musculoskeletal: Pulses present and equal in all extremities, no peripheral edema Motor: no focal deficits noted Neurological: CN II-XII grossly intact, no focal motor or sensory deficits noted Skin: Intact with no visualized rashes, surgical sites clean dry and intact Psych: Normal affect and mood Limitations: no limitations Course Vital Signs 01/15/25 12:21 Temperature 97.8 F Pulse Rate 66 Respiratory 20 Rate Blood Pressure 132/85 O2 Sat by Pulse 99 Oximetry EKG Findings - EKG Comments: EKG Findings:: My EKG interpretation: Ventricular rate 61, sinus rhythm, VA 179, cures 94, QTc 420. No VA prolongation, no QTC prolongation, no ST or T-wave changes noted. Overall, this EKG is unremarkable Medical Decision Making - Medical Decision Making Was pt. sent in by a medical professional or institution (, PA, FUR JOINER, urgent care, hospital, or fdc...) When possible be specific @ -No Did you speak to anyone other than the patient for history (EMS, parent, family, police, friend...)? What history was obtained from this source @ -No Did you review nursing and triage notes (agree or disagree)? Why? @ -I reviewed and agree with nursing and triage notes Were old charts reviewed (outside hosp., previous admission, EMS record, old EKG, old radiological studies, urgent care reports/EKG's, fdc records)? Report findings @ -No old charts were reviewed Differential Diagnosis (chest pain, altered mental status, abdominal pain women, abdominal pain men, vaginal bleeding, musculoskeletal, weakness, fever, dyspnea, syncope, headache, dizziness, GI bleed, back pain, seizure, CVA, palpatations, mental health)? @ -Differential Abdominal Pain Women: Appendicitis, Cholecystitis, diverticulosis, ischemic bowel, pancreatitis, hepatitis, UTI, gastroenteritis, AAA, incarcerated hernia, bowel obstruction, constipation, inflammatory bowel, hepatitis, peptic ulcer disease, splenic infarction, perforated viscus, vulvitis, ovarian torsion, PID, kidney stone, placenta abruption, this is not meant to be an all-inclusive list EKG interpreted by me (3pts min.). @ -See above X-rays interpreted by me (1pt min.). @ -None done CT interpreted by me (1pt min.). @ -CT ab pelvis shows postoperative ileus U/S interpreted by me (1pt. min.). @ -None done What testing was considered but not performed or refused? (CT, X-rays, U/S, labs)? Why? @ -None What meds were considered but not given or refused? Why? @ -None Was smoking cessation discussed for >3mins.? @ -No Were there social determinants of health that impacted care today? How? (Homelessness, low income, unemployed, alcoholism, drug addiction, transportation, low edu. Level, literacy, decrease access to med. care, assisted, rehab)? @ -No Was there de-escalation of care discussed even if they declined (Discuss DNR or withdrawal of care, Hospice)? DNR status @ -No What co-morbidities impacted this encounter? (DM, HTN, Smoking, COPD, CAD, Cancer, CVA, ARF, Chemo, Hep., AIDS, mental health diagnosis, sleep apnea, morbid obesity)? @ -Recent surgery Was patient admitted / discharged? Hospital course, mention meds given and route, prescriptions, significant lab abnormalities, going to OR and other perti nent info. @ -71-year-old male postoperative ileus. He is postop day 2 after laparoscopic cholecystectomy. Vital signs are stable. Laboratory evaluation within acceptable limits. Imaging studies shows postoperative ileus. Case discussed with Dr. Butt who is agreeable with admission. Patient given IV fluids and symptomatic treatment Did you discuss the management of the patient with other professionals (professionals i.e. , PA, FUR JOINER, lab, RT, psych nurse, social work job titles, systems security consultant, teacher, fire control officer, outpatient case manager)? Give summary @ -See above Was critical care preformed (if so, how long)? @ -No Undiagnosed new problem with uncertain prognosis? @ -No Drug Therapy requiring intensive monitoring for toxicity (Heparin, Nitro, Insulin, Cardizem)? @ -No Were any procedures done? @ -No Diagnosis/symptom? Acute, or Chronic, or Acute on Chronic? Uncomplicated (without systemic symptoms) or Complicated (systemic symptoms)? @ -Postoperative ileus Side effects of treatment? @ -No Exacerbation, Progression, or Severe Exacerbation? @ -No Poses a threat to life or bodily function? How? (Chest pain, USA, VT, pneumonia, PE, COPD, DKA, ARF, appy, cholecystitis, CVA, Diverticulitis, Homicidal, Suicidal, threat to staff... and all critical care pts) @ -yes - Lab Data Result diagrams: 01/15/25 12:39 01/15/25 12:39 Lab Results 01/15/25 01/15/25 Range/Units 12:39 12:39 WBC 8.19 (4.50-10.00) 10*3/uL RBC 5.04 (4.40-5.60) 10*6/uL Hgb 16.9 (13.0-17.0) g/dL Hct 47.7 (39.6-50.0) % MCV 94.6 (80.0-97.0) fL MCH 33.5 H (27.0-32.0) pg MCHC 35.4 (32.0-37.0) g/dL Plt Count 181 (140-440) 10*3/uL MPV 9.3 L (9.5-12.2) fL Immature Gran % (Auto) 0.1 % Neutrophils % 74.6 % Lymphocytes % 16.2 % Monocytes % 7.9 % Eosinophils % 0.7 % Basophils % 0.5 % Immature Gran # 0.01 (0.00-0.04) 10*3/uL Neutrophils # 6.10 (1.80-7.70) 10*3/uL Lymphocytes # 1.33 (0.90-5.00) 10*3/uL Monocytes # 0.65 (0.20-1.00) 10*3/uL Eosinophils # 0.06 (0.04-0.35) 10*3/uL Basophils # 0.04 (0.00-0.10) 10*3/uL Sodium 139 (137-145) mmol/L Potassium 4.2 (3.5-5.1) mmol/L Chloride 95 L (98-107) mmol/L Carbon Dioxide 34 H (22-30) mmol/L Anion Gap 10 mmol/L BUN 25 H (9-20) mg/dL Creatinine 1.17 (0.66-1.25) mg/dL Est GFR (CKD-EPI)AfAm 69 (>60 ml/min/1.73 sqM) Est GFR (CKD-EPI)NonAf 59 (>60 ml/min/1.73 sqM) Glucose 124 H (74-99) mg/dL Calcium 10.6 H (8.4-10.2) mg/dL Total Bilirubin 1.3 (0.2-1.3) mg/dL AST 113 H (17-59) U/L ALT 116 H (4-49) U/L Alkaline Phosphatase 81 (38-126) U/L Total Protein 7.7 (6.3-8.2) g/dL Albumin 4.7 (3.5-5.0) g/dL Lipase 36 (23-300) U/L Disposition Clinical Impression: Ileus Disposition: ADMITTED IP TO THIS [facility] Condition: Fair Referrals: Elvis Bonilla DO [Primary Care Provider] - 1-2 days Decision Time: 14:47
[2025-01-15] MEDS: SODIUM CHLORIDE 0.9% 1,000 ML IV STA (12:46)
[2025-01-15] MEDS: ONDANSETRON 4 MG/2 ML VIAL IVP STA (12:46)
[2025-01-15 12:54] LABS: Basophils # (A) 0.04 10*3/uL (0.00-0.10); Basophils % (A) 0.5 %; Eosinophils # (A) 0.06 10*3/uL (0.04-0.35); Eosinophils % (A) 0.7 %; HCT 47.7 % (39.6-50.0); HGB 16.9 g/dL (13.0-17.0); Lymphocytes # (A) 1.33 10*3/uL (0.90-5.00); Lymphocytes % (A) 16.2 %; MCH 33.5 pg (27.0-32.0); MCHC 35.4 g/dL (32.0-37.0); MCV 94.6 fL (80.0-97.0); Mean Platelet Volume 9.3 fL (9.5-12.2); Monocytes # (A) 0.65 10*3/uL (0.20-1.00); Monocytes % (A) 7.9 %; Neutrophils % (A) 74.6 %; Platelet Count 181 10*3/uL (140-440); RBC 5.04 10*6/uL (4.40-5.60); RDW 12.6 % (11.5-14.5); WBC 8.19 10*3/uL (4.50-10.00)
[2025-01-15 13:17] LABS: ALT 116 U/L (4-49); AST 113 U/L (17-59); African American GFR (CKD) 69 (>60 ml/min/1.73 sqM); Albumin 4.7 g/dL (3.5-5.0); Alkaline Phosphatase 81 U/L (38-126); Anion Gap 10 mmol/L; Blood Urea Nitrogen 25 mg/dL (9-20); Calcium 10.6 mg/dL (8.4-10.2); Carbon Dioxide 34 mmol/L (22-30); Chloride 95 mmol/L (98-107); Glucose 124 mg/dL (74-99); Lipase 36 U/L (23-300); Non-African American GFR(CKD) 59 (>60 ml/min/1.73 sqM); Potassium 4.2 mmol/L (3.5-5.1); Sodium 139 mmol/L (137-145); Total Bilirubin 1.3 mg/dL (0.2-1.3); Total Protein 7.7 g/dL (6.3-8.2)
--- NOTE | 2025-01-15 14:21 | CT ---
EXAMINATION TYPE: CT abdomen pelvis w con DATE OF EXAM: 01/15/2025 COMPARISON: None CLINICAL INDICATION: Male, 79 years old with history of post operative abdominal pain and nausea; PHH , post gall bladder surgery complications TECHNIQUE: Performed without Oral Contrast and with IV Contrast, patient injected with 80 mL mL of Isovue 300. CT DLP: 894.[address] CTDI: mGy Automated exposure control for dose reduction was used. FINDINGS: There are mild linear/interstitial densities in the lung bases representing either mild atelectasis o r chronic interstitial scarring. There is mild cardiomegaly. There is surgical absence of the gallbladder.. There is no biliary ductal dilatation. There is no focal mass or organomegaly involving the liver, pancreas, spleen or adrenal glands. There is no solid renal mass or hydronephrosis and there is homogeneous contrast enhancement of the r enal parenchyma. The caliber the abdominal aorta is normal is no retroperitoneal adenopathy or hemorrhage. The bowel loops are normal in caliber and there is no evidence of dilatation or obstruction. There ar e multiple fluid and air-filled loops of small bowel suggesting mild small bowel ileus. No inflammato ry changes are identified in the bowel wall or mesentery. There is moderate diverticulosis of the ben cending and sigmoid colon but no CT evidence of acute diverticulitis. There are a few droplets of free intraperitoneal air likely related to the recent surgery. There is n o free fluid. No pelvic mass, free fluid, abscess or adenopathy. The osseous structures and soft tissues are intact. IMPRESSION: 1. Bibasilar scarring or atelectasis. 2. Mild cardiomegaly. 3. Surgical absence of the gallbladder. 4. Minimal free intraperitoneal air likely secondary to recent surgery. 5.. Mildly distended stomach and small bowel loops likely a mild postoperative ileus [facility], , 01/15/2025 2:19 PM
[2025-01-15] MEDS ORDERED: NALOXONE 0.4 MG/ML 1 ML VIAL IV PRN (14:43)
[2025-01-15] MEDS: SODIUM CHLORIDE 0.9% 1,000 ML IV SCH (15:01)
[2025-01-15] MEDS: MORPHINE SULFATE 4 MG/ML SYRINGE IVP STA (15:11)
[2025-01-15] MEDS: METOCLOPRAMIDE 5 MG/ML 2 ML VIAL IVP PRN (15:11)
--- NOTE | 2025-01-15 15:30 | P.GSHP ---
History of Present Illness H&P Date: 01/15/25 79-year-old male postoperative day #2 status post robotic cholecystectomy presented to the emergency department with nausea and vomiting. He denies any significant abdominal pain since his surgery. States that he has not had had a bowel movement for 4 days. States that he is having difficulty keeping anything down and has had multiple vomiting episodes. CT of the abdomen and pelvis was performed with finding of mild small bowel ileus and postoperative changes. - Review of Systems All systems: negative Past Medical History Past Medical History: GERD/Reflux, Hyperlipidemia, Hypertension, Myocardial Infarction ([place]), Osteoarthritis (OA) Last Myocardial Infarction Date:: March 2022 History of Any Multi-Drug Resistant Organisms: None Reported Past Surgical History: Cholecystectomy, Heart Catheterization With Stent, Hernia Repair, Orthopedic Surgery Additional Past Surgical History / Comment(s): Bilateral knees patella tendon repair, right rotator cuff repair. Past Anesthesia/Blood Transfusion Reactions: No Reported Reaction, Family History of Problems w/ Anesthesia, Motion Sickness Additional Past Anesthesia/Blood Transfusion Reaction / Comment(s): Mother had reaction to morphine. Date of Last Stent Placement:: March 2022 Past Psychological History: No Psychological Hx Reported Smoking Status: Former smoker Past Alcohol Use History: None Reported Past Drug Use History: None Reported - Past Family History Father Family Medical History: Cancer Additional Family Medical History / Comment(s): Bladder cancer. Sister(s) Family Medical History: Cancer Additional Family Medical History / Comment(s): Breast cancer. Mother Family Medical History: Cancer Additional Family Medical History / Comment(s): Colon cancer. Medications and Allergies Home Medications Medication Instructions Recorded Confirmed Type Aspirin 81 mg PO DAILY #30 tab 04/11/22 01/15/25 Rx Metoprolol Tartrate [Lopressor] 25 mg PO BID #60 tab 04/11/22 01/15/25 Rx Ascorbic Acid [Vitamin C] 1,000 mg PO DAILY 04/19/24 01/15/25 History Cholecalciferol [Vitamin D3 (25 25 mcg PO DAILY 04/19/24 01/15/25 History Mcg = 1000 Iu)] Multivitamins, Thera [Multivitamin 1 tab PO DAILY 04/19/24 01/15/25 History (formulary)] Famotidine 20 mg PO DAILY 01/09/25 01/15/25 History HYDROcodone/APAP 5-325MG [[place] 1 tab PO Q6HR PRN 3 Days #12 tab 01/13/25 01/15/25 Rx 5-325] Atorvastatin [Lipitor] 40 mg PO HS 01/15/25 01/15/25 History Zinc Gluconate [Zinc] 50 mg PO DAILY 01/15/25 01/15/25 History Allergies Allergy/AdvReac Type Severity Reaction Status Date / Time No Known Allergies Allergy Verified 01/15/25 13:39 Surgical - Exam Osteopathic Statement: *. No significant issues noted on an osteopathic structural exam other than those noted in the History and Physical/Consult. Vital Signs Temp Pulse Resp BP Pulse Ox 97.8 F 66 20 132/85 99 01/15/25 12:21 01/15/25 12:21 01/15/25 12:21 01/15/25 12:21 01/15/25 12:21 - General no distress - Eyes normal ocular movement - ENT no hearing loss - Neck trachea midline - Respiratory normal respiratory effort - Abdomen Soft, incisions healing well, no significant tenderness, mild distention Results - Labs 01/15/25 12:39 01/15/25 12:39 Abnormal Lab Results - Last 24 Hours (Table) 01/15/25 01/15/25 Range/Units 12:39 12:39 MCH 33.5 H (27.0-32.0) pg MPV 9.3 L (9.5-12.2) fL Chloride 95 L (98-107) mmol/L Carbon Dioxide 34 H (22-30) mmol/L BUN 25 H (9-20) mg/dL Glucose 124 H (74-99) mg/dL Calcium 10.6 H (8.4-10.2) mg/dL AST 113 H (17-59) U/L ALT 116 H (4-49) U/L Diabetes panel 01/15/25 Range/Units 12:39 Sodium 139 (137-145) mmol/L Potassium 4.2 (3.5-5.1) mmol/L Chloride 95 L (98-107) mmol/L Carbon Dioxide 34 H (22-30) mmol/L BUN 25 H (9-20) mg/dL Creatinine 1.17 (0.66-1.25) mg/dL Glucose 124 H (74-99) mg/dL Calcium 10.6 H (8.4-10.2) mg/dL AST 113 H (17-59) U/L ALT 116 H (4-49) U/L Alkaline Phosphatase 81 (38-126) U/L Total Protein 7.7 (6.3-8.2) g/dL Albumin 4.7 (3.5-5.0) g/dL Calcium panel 01/15/25 Range/Units 12:39 Calcium 10.6 H (8.4-10.2) mg/dL Albumin 4.7 (3.5-5.0) g/dL Pituitary panel 01/15/25 Range/Units 12:39 Sodium 139 (137-145) mmol/L Potassium 4.2 (3.5-5.1) mmol/L Chloride 95 L (98-107) mmol/L Carbon Dioxide 34 H (22-30) mmol/L BUN 25 H (9-20) mg/dL Creatinine 1.17 (0.66-1.25) mg/dL Glucose 124 H (74-99) mg/dL Calcium 10.6 H (8.4-10.2) mg/dL Adrenal panel 01/15/25 Range/Units 12:39 Sodium 139 (137-145) mmol/L Potassium 4.2 (3.5-5.1) mmol/L Chloride 95 L (98-107) mmol/L Carbon Dioxide 34 H (22-30) mmol/L BUN 25 H (9-20) mg/dL Creatinine 1.17 (0.66-1.25) mg/dL Glucose 124 H (74-99) mg/dL Calcium 10.6 H (8.4-10.2) mg/dL Total Bilirubin 1.3 (0.2-1.3) mg/dL AST 113 H (17-59) U/L ALT 116 H (4-49) U/L Alkaline Phosphatase 81 (38-126) U/L Total Protein 7.7 (6.3-8.2) g/dL Albumin 4.7 (3.5-5.0) g/dL - Imaging CT scan - abdomen: report reviewed, image reviewed CT scan - pelvis: report reviewed, image reviewed Assessment and Plan Plan: 79-year-old male postoperative day #2, robotic cholecystectomy with finding of postoperative ileus. Patient was given trial of liquids and did not tolerate this with more vomiting. Patient was started on Reglan with recommendation for nasogastric tube decompression. We will also begin the patient on rectal suppository to help begin motility for bowel function. Case was discussed with the patient and he is agreeable with this plan and will be kept for observation
[2025-01-15] MEDS: METOCLOPRAMIDE 5 MG/ML 2 ML VIAL IVP SCH (15:33)
[2025-01-15] MEDS: bisacodyL 10 MG SUPP RECTAL SCH (16:43)
--- NOTE | 2025-01-15 18:02 | XR ---
EXAMINATION TYPE: XR chest 1V portable DATE OF EXAM: 01/15/2025 5:53 PM COMPARISON: Multiple prior chest radiograph, most recently dated 04/18/2024. CLINICAL INDICATION: Male, 79 years old with history of NGT placement; [facility] TECHNIQUE: XR chest 1V portable Frontal view of the chest. FINDINGS: Lungs/Pleura: There is no evidence of pleural effusion, focal consolidation, or pneumothorax. Pulmonary vascularity: Unremarkable. Heart/mediastinum: Cardiomediastinal silhouette is unremarkable. Musculoskeletal: No acute osseous pathology. Other findings: Lucency under the right hemidiaphragm suspicious for pneumoperitoneum. Lines/Tubes: Enteric tube courses below the left hemidiaphragm with distal sidehole overlying the expected gastric lumen. IMPRESSION: 1. Enteric tube in appropriate positioning. 2. Free air beneath the right hemidiaphragm concerning for pneumoperitoneum. In the absence of recen t surgery or chronic suprapubic catheterization, findings are concerning for possible bowel perforati on. Further evaluation with CT abdomen/pelvis is recommended as clinically warranted. [facility], , 01/15/2025 5:59 PM
[2025-01-15] MEDS ORDERED: ONDANSETRON 4 MG/2 ML VIAL IVP PRN (20:03)
[2025-01-15] MEDS: MELATONIN 5 MG TABLET PO SCH (21:00)
[2025-01-15] MEDS: BENZOCAINE/MENTHOL LOZENG 1 EACH LOZENGE MUCOUS MEM PRN (21:12)
[2025-01-16 07:28] VITALS: TEMP 97.8
--- NOTE | 2025-01-16 07:59 | XR ---
EXAMINATION TYPE: XR abdomen 1V DATE OF EXAM: 01/16/2025 7:26 AM COMPARISON: Correlation CT 01/15/2025 CLINICAL INDICATION: Male, 79 years old with history of ileus; PHH, pain, post ileus repair TECHNIQUE: One radiographic view of the abdomen was obtained. FINDINGS: An NG tube is present. Mild free air is noted below the right hemidiaphragm. No dilated sma ll bowel loops. Scattered mild to moderate stool throughout the colon with air extending distally to the rectum. Spondylotic change in the mid and lower lumbar spine. IMPRESSION: 1. Residual mild free intraperitoneal air, noted below the right hemidiaphragm. 2. No evidence for bowel obstruction. Mild to moderate stool burden. [facility], , 01/16/2025 7:57 AM
[2025-01-16 08:00] VITALS: BP 135/75; PULSE 60; RESP 18
--- NOTE | 2025-01-16 12:08 | P.DS ---
Providers Date of admission: 01/15/25 14:43 Expected date of discharge: 01/16/25 Attending physician: DO Quique Gonzalez DO Consults: 01/15/25 15:26 Consult Physician Routine Consulting Provider: Elvis Bonilla Consult Reason/Comments: Pt known to you, med mgmt, postop ileus Do you want consulting provider notified?: Yes Primary care physician: Elvis Bonilla Patient Condition at Discharge: Fair Plan - Discharge Summary Discharge Rx Participant: Yes New Discharge Prescriptions: No Action Aspirin 81 mg PO DAILY #30 tab Ascorbic Acid [Vitamin C] 1,000 mg PO DAILY Famotidine 20 mg PO DAILY HYDROcodone/APAP 5-325MG [[place] 5-325] 1 tab PO Q6HR PRN 3 Days #12 tab PRN Reason: Pain Metoprolol Tartrate [Lopressor] 25 mg PO BID #60 tab Multivitamins, Thera [Multivitamin (formulary)] 1 tab PO DAILY Cholecalciferol [Vitamin D3 (25 Mcg = 1000 Iu)] 25 mcg PO DAILY Zinc Gluconate [Zinc] 50 mg PO DAILY Atorvastatin [Lipitor] 40 mg PO HS Discharge Medication List Aspirin 81 mg PO DAILY #30 tab 04/11/22 [Rx] Metoprolol Tartrate [Lopressor] 25 mg PO BID #60 tab 04/11/22 [Rx] Ascorbic Acid [Vitamin C] 1,000 mg PO DAILY 04/19/24 [History] Cholecalciferol [Vitamin D3 (25 Mcg = 1000 Iu)] 25 mcg PO DAILY 04/19/24 [History] Multivitamins, Thera [Multivitamin (formulary)] 1 tab PO DAILY 04/19/24 [History] Famotidine 20 mg PO DAILY 01/09/25 [History] HYDROcodone/APAP 5-325MG [[place] 5-325] 1 tab PO Q6HR PRN 3 Days #12 tab 01/13/25 [Rx] Atorvastatin [Lipitor] 40 mg PO HS 01/15/25 [History] Zinc Gluconate [Zinc] 50 mg PO DAILY 01/15/25 [History] Follow up Appointment(s)/Referral(s): Elvis Bonilla DO [Primary Care Provider] - 1-2 days (The office was on lunch please call and make follow up appointment.) Kathleen Butt DO [Doctor of Osteopathic Medicine] - 1 Week
== END 2025-01-16 14:25 | disposition home or self-care (01) | DRG 394 ==
LOC: EC 12:15 → 5NMEDONC 14:43
PROVIDERS: ADMIT Surgery; ATTEND Surgery
PROC: 0D9670Z Drainage of Stomach with Drainage Device, Via Natural or Artificial Opening (ICD-10-PCS; principal; 2025-01-15)
DX: K91.89 Other postprocedural complications and disorders of digestive system (principal); K56.7 Ileus, unspecified; I10 Essential (primary) hypertension; K21.9 Gastro-esophageal reflux disease without esophagitis; E78.5 Hyperlipidemia, unspecified; M19.90 Unspecified osteoarthritis, unspecified site; Z79.899 Other long term (current) drug therapy; Z79.82 Long term (current) use of aspirin; I25.2 Old myocardial infarction; Z95.5 Presence of coronary angioplasty implant and graft; Z87.891 Personal history of nicotine dependence
CPT/HCPCS: 36415; 71045; 74018; 74177; 80053; 83690; 85025; 93005; 96361; 96374; 96375; 99285